=== PATIENT | female | born 1980 | race Caucasian/White ===

== ENCOUNTER → 2017-11-23 14:02 | Outpatient (CLI) | payer BC, SELFPAY ==
[2017-11-23 14:10] LABS: Microscopic, Urine URINE MICROSCOPIC (MICROSCOPIC)
[2017-11-23 14:31] LABS: Basophils # 0.1 K/mm3 (0-0.2); Basophils % 0.6 % (0.1-2.0); Eosinophils # 0.2 K/mm3 (0.0-0.4); Eosinophils % 2.1 % (0.1-12.0); Hematocrit 41.1 % (37.0-47.0); Hemoglobin 13.7 g/dL (12.2-16.2); Lymphocytes # 3.2 K/mm3 (0.7-4.5); Lymphocytes % 36.3 K/mm3 (10-50); Mean Corpuscular HGB Conc 33.4 g/dL (31.8-35.4); Mean Corpuscular Hemoglobin 30.6 pg (27.0-31.2); Mean Corpuscular Volume 91.5 fl (81-99); Mean Platelet Volume 8.7 fl (7.4-10.4); Monocytes # 0.4 K/mm3 (0.1-1.0); Neutrophils # 4.9 K/mm3 (1.8-7.8); Platelet Count 192 K/mm3 (142-424); Red Blood Count 4.49 M/mm3 (4.20-5.40); White Blood Count 8.7 K/mm3 (4.8-10.8)
[2017-11-23 14:52] LABS: Appearance,Urine CLEAR (Clear); Bilirubin,Urine Negative (Negative); Blood, Urine TRACE-L (Negative); Color,Urine YELLOW (Yellow); Glucose,Urine (UA) Negative (Negative); Ketones,Urine Negative (Negative); Leukocyte Esterase,Urine TRACE (Negative); Nitrate,Urine Negative (Negative); PH,Urine 6.5 (5.0-8.5); Protein,Urine Negative (Negative); Urobilinogen,Urine 0.2 EU/dl (0.2)
[2017-11-23 15:01] LABS: RBC,Urine Occasional #/hpf (0-3)
[2017-11-23 15:02] LABS: Bacteria,Urine 2+ /lpf
[2017-11-23 15:03] LABS: Alanine Aminotransferase 24 U/L (12-78); Albumin Level 3.4 gm/dL (3.4-5.0); Albumin/Globulin Ratio 0.9 (1.1-1.8); Alkaline Phosphatase 99 U/L (46-116); Anion Gap 12.9 mEq/L (5-15); Aspartate Amino Transferase 13 U/L (15-37); Bilirubin,Total 0.2 mg/dL (0.2-1.0); Blood Urea Nitrogen 22 mg/dL (7-18); Calcium 8.9 mg/dL (8.5-10.1); Carbon Dioxide 27 mmol/L (21.0-32.0); Chloride 105 mmol/L (98-107); Creatinine,Serum 1.01 mg/dL (0.55-1.02); Estimated Glomerular Filt Rate 62 ml/min (>60); GFR (African American) 75 ML/MIN (>60); Globulin 3.7 gm/dl (1.3-3.2); Glucose 110 mg/dL (74-106); Potassium 3.9 mmoL/L (3.5-5.1); Sodium 141 mmol/L (136-145); Total Protein,Serum 7.1 gm/dL (6.4-8.2)
== END ==
PROVIDERS: PCP Family Medicine; Visit Provider Obstetrics & Gynecology
DX: Z01.818 Encounter for other preprocedural examination (principal); N81.9 Female genital prolapse, unspecified
CPT/HCPCS: 36415; 80053; 81001; 85025; 87086

== ENCOUNTER → 2018-01-10 20:29 | Outpatient (REF) | payer BC, SELFPAY | LOC: LAB 20:29 | PROVIDERS: Visit Provider Nurse Practitioner Family | DX: J02.9 Acute pharyngitis, unspecified (principal) ==

== ENCOUNTER 2020-01-01 16:41 | Emergency (ER) | payer MEDICAID, SELFPAY ==
[2020-01-01 16:41] VITALS: BP 161/94; PULSE 114; RESP 18; TEMP 37.3; O2SAT 98; BMI 39.2
[2020-01-01 16:53] VITALS: BMI 39.2
--- NOTE | 2020-01-01 16:54 | CT_ITS ---
PROCEDURE: CT ABDOMEN PELVIS WO CON CLINICAL INDICATION: r/o stone Right flank pain COMPARISON: CT ABDPELW CT ABD PELVIS W/ CONTRAST from 08/11/2016 TECHNIQUE: Axial images obtained with sagittal and coronal reformats. All CT scans at the facility use one or more dose reduction, viz: automated exposure control, ma/kV adjustment per patient size (including targeted exams where dose is matched to indication, i.e. head), or iterative reconstruction technique. FINDINGS: LOWER THORAX: No acute finding ABDOMEN & PELVIS: Fatty liver. Prior cholecystectomy. The spleen, adrenal glands, pancreas, and kidneys have an unremarkable appearance. No renal or ureteral calculi No intestinal obstruction or free air. Prior hysterectomy. Unremarkable appendix. No pelvic mass or abnormal fluid collection. No acute bony findings. IMPRESSION: No acute abdominal or pelvic findings. Dictated by: Vega Kaufman MD 01/02/2020 06:33 Vega Kaufman MD in [place] 01/02/2020 06:33
[2020-01-01 17:01] LABS: Microscopic, Urine URINE MICROSCOPIC (MICROSCOPIC)
[2020-01-01 17:02] LABS: Appearance,Urine CLOUDY (Clear); Bilirubin,Urine Negative (Negative); Blood, Urine 3+ (Negative); Color,Urine YELLOW (Yellow); Glucose,Urine (UA) Negative (Negative); Ketones,Urine Negative (Negative); Leukocyte Esterase,Urine Negative (Negative); Nitrate,Urine Negative (Negative); Protein,Urine Negative (Negative); Specific Gravity, Urine >= 1.030 (1.005-1.030); Urobilinogen,Urine 0.2 EU/dl (0.2)
--- NOTE | 2020-01-01 17:04 | HMH.EDGENADL ---
ED Disposition Clinical Impression: History of kidney stones Hematuria Qualifiers: Hematuria type: gross Qualified Code(s): R31.0 - Gross hematuria Disposition: Home, Self-Care Condition on Discharge: Fair Instructions: DI for Hematuria Additional Instructions: You have been evaluated for hernia, likely passed a kidney stone. Please complete a bowel cleanout. Take 10 ounces of magnesium citrate. 2 hours later take 4 capfuls of MiraLAX. You should have multiple bowel movements. Stay hydrated with water and Gatorade. Return to the emergency department for any new or worsening symptoms. Follow-up with your primary care doctor. Prescriptions: Magnesium Citrate [Magnesium Citrate 10oz Bottle] 10 oz PO ONCE #1 solution Prescription Printed polyethylene glycoL 3350 [Miralax Powder] 17 gm PO ONCE #119 gm Prescription Printed Referrals: Provider,Referral, [Primary Care Provider] - Time of Disposition: 18:16 - Critical Care Critical Care Time: No Attestation: On 01/01/20, the high probability of a clinically significant, sudden or life threatening deterioration of the following system(s) required my full and direct attention, intervention and personal management. The time I documented below is in addition to time spent performing reported procedures but includes the following listed in this critical care notation. Medical Decision Making - Medical Records Medical records reviewed: Yes: I reviewed the patient's medical records. - Valentin Inquiry Pt receiving controlled substance: No Vital Signs: 01/01/20 16:41 01/01/20 17:54 01/01/20 19:02 Temperature 99.2 F 99.2 F Temperature Source Oral Oral Pulse Rate 95 H Pulse Rate [Radial] 114 H 89 Respiratory Rate 18 18 Blood Pressure 126/87 Blood Pressure [Right Arm] 161/94 H 109/60 L Blood Pressure Mean [Right Arm] 116 76 Blood Pressure Source Automatic Cuff Blood Pressure Source [Right Arm] Automatic Cuff Blood Pressure Position Sitting Blood Pressure Position [Right Arm] Sitting Sitting 02 Sat by Pulse Oximetry 98 97 Oxygen Delivery Method Room Air Room Air Room Air - Lab Data Lab Results 01/01/20 16:52: Urine Color Yellow, Urine Appearance Cloudy, Urine pH 6.0, Ur Specific Snyder >= 1.030, Urine Protein Negative, Urine Glucose (UA) Negative, Urine Ketones Negative, Urine Blood 3+, Urine Nitrate Negative, Urine Bilirubin Negative, Urine Urobilinogen 0.2, Ur Leukocyte Esterase Negative, Urine RBC 10-20, Urine WBC 5-10, Ur Squamous Epith Cells 5-10 01/01/20 17:05: WBC 9.4, RBC 4.66, Hgb 13.3, Hct 42.2, MCV 90.6, MCH 28.6, MCHC 31.6 L, RDW 13.4, Plt Count 227, MPV 8.7, Neut % (Auto) 59.2, Lymph % (Auto) 31.7, Gray % (Auto) 5.2, Eos % (Auto) 3.3, Baso % (Auto) 0.7, Neut # (Auto) 5.6, Lymph # (Auto) 3.0, Gray # (Auto) 0.5, Eos # (Auto) 0.3, Baso # (Auto) 0.1 01/01/20 17:05: Sodium 140, Potassium 3.8, Chloride 106, Carbon Dioxide 27, Anion Gap 10.8, BUN 11, Creatinine 0.70, Estimated Creat Clear 186, Estimated GFR 94, Est GFR ( Amer) 114, Glucose 114 H, Calcium 8.9, Total Bilirubin 0.2, AST 28, ALT 27, Alkaline Phosphatase 81, Total Protein 6.9, Albumin 4.0, Globulin 2.9, Albumin/Globulin Ratio 1.4 Result diagrams: 01/01/20 17:05 01/01/20 17:05 Orders (Tests/Meds): ED MEDICATIONS Discontinued Medications Generic Name Dose Route Start Last Admin Trade Name Freq PRN Reason Stop Dose Admin Sodium Chloride 1,000 mls @ 999 mls/hr 01/01/20 17:00 01/01/20 16:57 Sod Chlor 0.9% 1000ml Bag IV 01/01/20 18:00 999 mls/hr .Q1H1M STEFANO Administration Morphine Sulfate 4 mg 01/01/20 17:09 01/01/20 17:10 Morphine 4mg/Ml Syringe IV 01/01/20 17:10 4 mg ONCE ONE Administration Ondansetron HCl 4 mg 01/01/20 16:55 01/01/20 16:57 Ondansetron 4mg/2ml Vial IV 01/01/20 16:56 4 mg ONCE ONE Administration ORDERS Category Date Time Status CT abdomen pelvis wo con Stat Cat Scan 01/01/20 16:54 Taken - CT
[2020-01-01 17:14] LABS: Basophils # 0.1 K/mm3 (0-0.2); Basophils % 0.7 % (0.1-2.0); Eosinophils # 0.3 K/mm3 (0.0-0.4); Eosinophils % 3.3 % (0.1-12.0); Hematocrit 42.2 % (37.0-47.0); Hemoglobin 13.3 g/dL (12.2-16.2); Lymphocytes % 31.7 % (10-50); Mean Corpuscular HGB Conc 31.6 g/dL (31.8-35.4); Mean Corpuscular Hemoglobin 28.6 pg (27.0-31.2); Mean Corpuscular Volume 90.6 fl (81-99); Mean Platelet Volume 8.7 fl (7.4-10.4); Monocytes # 0.5 K/mm3 (0.1-1.0); Monocytes % 5.2 % (1.7-9.3); Neutrophils # 5.6 K/mm3 (1.8-7.8); Neutrophils % 59.2 % (37.0-80.0); Platelet Count 227 K/mm3 (142-424); Red Blood Count 4.66 M/mm3 (4.20-5.40); Red Cell Distribution Width 13.4 % (11.5-17.5); White Blood Count 9.4 K/mm3 (4.8-10.8)
[2020-01-01 17:19] LABS: Chloride 106 mmol/L (98-107)
[2020-01-01 17:20] LABS: Potassium 3.8 mmoL/L (3.5-5.1); Sodium 140 mmol/L (136-145)
[2020-01-01 17:22] LABS: Alanine Aminotransferase 27 U/L (12-78); Alkaline Phosphatase 81 U/L (38-126); Anion Gap 10.8 mEq/L (5-15); Aspartate Amino Transferase 28 U/L (14-36); Bilirubin,Total 0.2 mg/dl (0.2-1.3); Blood Urea Nitrogen 11 mg/dl (7-17); Carbon Dioxide 27 mmol/L (22.0-30.0); Creatinine Clearance Estimated 186 mL/min (50-200); Estimated Glomerular Filt Rate 94 ml/min (>60); GFR (African American) 114 ML/MIN (>60)
[2020-01-01 17:23] LABS: Albumin/Globulin Ratio 1.4 (1.1-1.8); Calcium 8.9 mg/dl (8.4-10.2); Globulin 2.9 g/dL (1.3-3.2); Glucose 114 mg/dl (74-100); Total Protein,Serum 6.9 g/dl (6.3-8.2)
[2020-01-01 17:54] VITALS: BP 109/60; PULSE 89; O2SAT 97
[2020-01-01 19:02] VITALS: BP 126/87; PULSE 95; RESP 18; TEMP 37.3; O2SAT 97
== END 2020-01-01 19:05 | disposition home or self-care (01) ==
PROVIDERS: Emergency Provider Emergency Medicine
DX: R31.9 Hematuria, unspecified (principal); Z87.442 Personal history of urinary calculi; Z88.2 Allergy status to sulfonamides; K21.9 Gastro-esophageal reflux disease without esophagitis; Z87.891 Personal history of nicotine dependence
CPT/HCPCS: 74176; 80053; 81001; 85025; 96365; 96375; 99283; J2405

== ENCOUNTER 2020-05-03 14:23 | Emergency (ER) | payer MEDICAID, SELFPAY ==
[2020-05-03 15:30] VITALS: BP 123/74; PULSE 95; RESP 14; TEMP 36.9; O2SAT 99; BMI 40.7
--- NOTE | 2020-05-03 16:07 | HMH.EDUTC ---
[facility] [place]ression: Migraine headache Qualifiers: Migraine type: unspecified Status migrainosus presence: without status migrainosus Intractability: not intractable Qualified Code(s): G43.909 - Migraine, unspecified, not intractable, without status migrainosus Disposition: Home, Self-Care Condition on Discharge: Good Instructions: Migraine -- Adult, DI for Migraine Additional Instructions: Drink plenty of fluids. Take the medications as directed Follow up with your regular doctor. GO TO THE ER FOR ANY WORSENING SYMPTOMS Prescriptions: SUMAtriptan succinate [Imitrex] 50 mg PO DAILYP PRN #20 tab PRN Reason: Migraine Headache Transmission Status: Received by [facility] Referrals: Angel Edwards II, MD [Primary Care Provider] - Forms: Work/School Release Time of Disposition: 16:29 Medical Decision Making - Medical Records Medical records reviewed: No: I reviewed the patient's medical records. - Valentin Inquiry Pt receiving controlled substance: No Vital Signs: 05/03/20 15:30 05/03/20 16:30 Temperature 98.4 F 98.6 F Temperature Source Oral Oral Pulse Rate 96 H Pulse Rate [Right] 95 H Respiratory Rate 14 14 Blood Pressure 122/76 Blood Pressure [Right Arm] 123/74 Blood Pressure Mean [Right Arm] 90 Blood Pressure Source [Right Arm] Automatic Cuff Blood Pressure Position [Right Arm] Sitting 02 Sat by Pulse Oximetry 99 Oxygen Delivery Method Room Air [facility] [place] - General Stated complaint: Migraine Time Seen by Provider: 05/03/20 16:07 Mode of Arrival: Ambulatory Source of Information: Patient Limitations: No Limitations Description of Symptoms (Recalled from Triage Doc. by RN): pt states she had a migraine that started yesterda. HEENT Symptoms (Recalled from RN notes): Yes (migraine and sinus pressure) Resp Symptoms (Recalled from RN notes): No Skin Symptoms (Recalled from RN notes): No MS Symptoms (Recalled from RN notes): No Functional Status (Recalled from RN notes): na - History of Present Illness Provider Complaint: She has a history of migraine headache. She states that for the past 2 days she has had a migraine that has not broke with her normal medications. She has been taking ibuprofen and excedrin. She denies that it is not the worst headache that she has ever had. - Related Data Previous Rx's Medication Instructions Recorded SUMAtriptan succinate [Imitrex] 50 mg PO DAILYP PRN #20 tab 05/03/20 Allergies Allergy/AdvReac Type Severity Reaction Status Date / Time ketorolac [From TORADOL] Allergy Unknown I-RASH Verified 05/03/20 15:34 latex [LATEX] Allergy Unknown RASH, Verified 05/03/20 15:34 ITCHING loratadine [LORATADINE] Allergy Unknown MIGRAINES Verified 05/03/20 15:34 tramadol [TRAMADOL] Allergy Unknown I-RASH Verified 05/03/20 15:34 Sulfa (Sulfonamide Allergy Verified 05/03/20 15:34 Antibiotics) - Worker's Comp Is this a Worker's Comp case?: No [facility] History - Hepatitis A Screen Drug use history?: No High risk sexual behaviors?: No History of sexually transmitted infection?: No Currently employed?: No Childcare worker?: No Do you have indoor plumbing?: Yes Do you have electricity?: Yes Attestation statement:: This patient has been screened for Hepatitis A risk factors. I have reviewed the patient's past medical history: Yes Medical History: Reports:: Gastroesophageal Reflux Disease(GERD) Denies:: Cancer, Diabetes Mellitus Type 1, Diabetes Mellitus Type 2, Internal Pacemaker, MRSA, Seizures Other Medical History: Reports: Other. Denies: Blood Transfusion Reaction Comment: ENDOMETRIOSIS. Seroma complicating a procedure. Galactorrhea (RT breast). EARLY ONSET STROKE??? Other Surgeries: No: Pacemaker Amputation: No Fractures: No Comment: Dx LSC--PCO--2001. Lasik eye surgery--2002. D&C, [facility] Bx--2002. EGD--2002. [place] teeth--2003. Cystoscopy Dr. Jacob--2007. Dx HSC, Fx D&C, Endometrial polypX, Dx LS
[2020-05-03 16:30] VITALS: BP 122/76; PULSE 96; RESP 14; TEMP 37
== END 2020-05-03 16:45 | disposition home or self-care (01) ==
PROVIDERS: Emergency Provider Nurse Practitioner Family; PCP Internal Medicine
DX: Z20.822 Contact with and (suspected) exposure to COVID-19 (principal); G43.909 Migraine, unspecified, not intractable, without status migrainosus; K21.9 Gastro-esophageal reflux disease without esophagitis; Z88.2 Allergy status to sulfonamides
CPT/HCPCS: 99202; G0463; U0003

== ENCOUNTER 2020-08-07 18:02 | Emergency (ER) | payer MEDICAID, SELFPAY ==
--- NOTE | 2020-08-07 18:10 | ECG_ITS ---
APPROVED REPORT Exam: Resting ECG HR:112 bpm ECG Measurements Heart Rate 112 AXES MS 130 P 52 QRSd 74 QRS -28 QT 372 T 61 QTc 507 Conclusion Sinus tachycardia Possible Left atrial enlargement Borderline ECG Electronically signed by : Remigio Wells, 08/08/2020 16:38:21
--- NOTE | 2020-08-07 18:10 | XR_ITS ---
PROCEDURE INFORMATION: Exam: XR Chest Exam date and time: 08/07/20 06:10 PM Age: 39 years old Clinical indication: Shortness of breath; Prior surgery; Surgery date: 3-7 days post-operative; Surgery type: Tonsil removal; Patient HX: SOA and dehydration; Additional info: SOB TECHNIQUE: Imaging protocol: XR of the chest. Views: 1 view. COMPARISON: CR XR CHEST 2V 06/11/19 04:48 PM FINDINGS: Lungs: Unremarkable. No consolidation. Pleural spaces: Unremarkable. No pleural effusion. No pneumothorax. Heart/Mediastinum: Unremarkable. No cardiomegaly. Bones/joints: Unremarkable. IMPRESSION: No acute findings.
--- NOTE | 2020-08-07 18:11 | HMH.EDGENADL ---
ED Disposition Clinical Impression: Tachycardia Disposition: Home, Self-Care Condition on Discharge: Good Referrals: Angel Edwards II, MD [Primary Care Provider] - - Critical Care Critical Care Time: No Attestation: On , the high probability of a clinically significant, sudden or life threatening deterioration of the following system(s) required my full and direct attention, intervention and personal management. The time I documented below is in addition to time spent performing reported procedures but includes the following listed in this critical care notation. Medical Decision Making - Medical Records Medical records reviewed: Yes: I reviewed the patient's medical records. - Valentin Inquiry Pt receiving controlled substance: No Vital Signs: 08/07/20 18:18 Temperature 98.1 F Temperature Source Oral Pulse Rate [Right] 120 H Respiratory Rate 18 Blood Pressure [Right Arm] 146/90 H Blood Pressure Mean [Right Arm] 108 Blood Pressure Source [Right Arm] Automatic Cuff Blood Pressure Position [Right Arm] Sitting 02 Sat by Pulse Oximetry 98 Oxygen Delivery Method Room Air - Lab Data Lab Results 08/07/20 18:30: WBC 12.4 H, RBC 4.97, Hgb 14.6, Hct 46.5, MCV 93.5, MCH 29.3, MCHC 31.4 L, RDW 13.7, Plt Count 261, MPV 8.8, Neut % (Auto) 71.0, Lymph % (Auto) 20.9, Parker % (Auto) 6.1, Eos % (Auto) 1.0, Baso % (Auto) 1.0, Neut # (Auto) 8.8 H, Lymph # (Auto) 2.6, Parker # (Auto) 0.8, Eos # (Auto) 0.1, Baso # (Auto) 0.1 08/07/20 18:30: Sodium 139, Potassium 3.6, Chloride 101, Carbon Dioxide 25, Anion Gap 16.6 H, BUN 19 H, Creatinine 0.70, Estimated Creat Clear 180, Estimated GFR 94, Est GFR ( Amer) 114, Glucose 136 H, Calcium 9.6, Troponin I < 0.01 08/07/20 18:30: D-Dimer 0.69 H Result diagrams: 08/07/20 18:30 08/07/20 18:30 Orders (Tests/Meds): ED MEDICATIONS Generic Name Dose Route Start Last Admin Trade Name Freq PRN Reason Stop Dose Admin Lactated Ringer's 2,000 mls @ 999 mls/hr 08/07/20 18:15 08/07/20 18:39 Lactated Ringer's 1000 Ml Bag IV 08/07/20 20:15 999 mls/hr .Q2H1M STEFANO Administration Discontinued Medications Generic Name Dose Route Start Last Admin Trade Name Freq PRN Reason Stop Dose Admin Morphine Sulfate 4 mg 08/07/20 18:45 08/07/20 18:51 Morphine 4mg/Ml Syringe IV 08/07/20 18:46 4 mg ONCE ONE Administration Ondansetron HCl 4 mg 08/07/20 18:18 08/07/20 18:39 Ondansetron 4mg/2ml Vial IV 08/07/20 18:19 4 mg ONCE ONE Administration ORDERS Category Date Time Status Troponin I Q3H Lab 08/07/20 21:30 Ordered Troponin I Q3H Lab 08/08/20 00:30 Ordered ECG Request by /Alfonso Stat Y 08/07/20 18:10 Ordered Medical Decision Narrative: In summary is a 33-year-old female presenting for tachycardia and shortness of breath after tonsillectomy on Sunday. Patient has no evidence of bleeding, no concern for infection, patient vitals concerning for tachycardia 130s, blood pressure stable. Not hypoxemic. Given the patient recently had an operation could be dehydrated secondary to low oral intake or have other pathologies including pulmonary embolism, electrolyte abnormality therefore labs were obtained including D-dimer, troponin, chest x-ray, EKG, patient is given 2 L bolus of lactated Ringer's. Patient on IV morphine for pain control, IV Zofran for nausea control. Patient's blood work is nonactionable, troponin is negative, D-dimer is elevated 0.6 however patient does meet criteria for years algorithm and therefore does not require any further imaging at this time. This is possibly elevated in setting of recent surgery. Patient's repeat heart rate was significant improvement patient was amenable to discharge, patient will follow up with her surgery team in the next several days, patient was sent home General Adult HPI - General Stated complaint: feels dehydrated Time Seen by Provider: 08/07/20 18:11 - History of Present Illness HPI narrative: 39-
[2020-08-07 18:18] VITALS: BP 146/90; PULSE 120; RESP 18; TEMP 36.7; O2SAT 98; BMI 37.9
[2020-08-07 18:52] LABS: Basophils # 0.1 K/mm3 (0-0.2); Eosinophils # 0.1 K/mm3 (0.0-0.4); Hematocrit 46.5 % (37.0-47.0); Hemoglobin 14.6 g/dL (12.2-16.2); Lymphocytes # 2.6 K/mm3 (0.7-4.5); Lymphocytes % 20.9 % (10-50); Mean Corpuscular HGB Conc 31.4 g/dL (31.8-35.4); Mean Corpuscular Hemoglobin 29.3 pg (27.0-31.2); Mean Corpuscular Volume 93.5 fl (81-99); Mean Platelet Volume 8.8 fl (7.4-10.4); Monocytes # 0.8 K/mm3 (0.1-1.0); Monocytes % 6.1 % (1.7-9.3); Neutrophils # 8.8 K/mm3 (1.8-7.8); Platelet Count 261 K/mm3 (142-424); Red Blood Count 4.97 M/mm3 (4.20-5.40); Red Cell Distribution Width 13.7 % (11.5-17.5); White Blood Count 12.4 K/mm3 (4.8-10.8)
[2020-08-07 18:54] LABS: Chloride 101 mmol/L (98-107); Potassium 3.6 mmoL/L (3.5-5.1); Sodium 139 mmol/L (136-145)
[2020-08-07 18:57] LABS: Anion Gap 16.6 mEq/L (5-15); Blood Urea Nitrogen 19 mg/dl (7-17); Calcium 9.6 mg/dl (8.4-10.2); Carbon Dioxide 25 mmol/L (22.0-30.0); Creatinine Clearance Estimated 180 mL/min (50-200); Estimated Glomerular Filt Rate 94 ml/min (>60); GFR (African American) 114 ML/MIN (>60); Glucose 136 mg/dl (74-100)
[2020-08-07 19:02] LABS: D-Dimer 0.69 ug/mL (0.0-0.5)
[2020-08-07 19:11] LABS: Troponin I < 0.01 ng/ml (0.00-0.034)
[2020-08-07 20:48] VITALS: BP 134/78; PULSE 90; RESP 16; TEMP 36.7; O2SAT 98
== END 2020-08-07 20:50 | disposition home or self-care (01) ==
PROVIDERS: Emergency Provider Emergency Medicine; PCP Internal Medicine
DX: R00.0 Tachycardia, unspecified (principal); K21.9 Gastro-esophageal reflux disease without esophagitis; Z88.2 Allergy status to sulfonamides; Z88.8 Allergy status to other drugs, medicaments and biological substances; Z91.040 Latex allergy status
CPT/HCPCS: 71045; 80048; 84484; 85025; 85378; 93005; 96365; 99282; J2405

== ENCOUNTER 2020-08-09 11:53 | Emergency (ER) | payer MEDICAID, SELFPAY ==
[2020-08-09 11:54] VITALS: BP 154/115; PULSE 115; RESP 16; TEMP 36.8; O2SAT 100; BMI 37.9
--- NOTE | 2020-08-09 12:01 | PC.NURSE ---
calling pt's ENT dr vasquez at this time.
--- NOTE | 2020-08-09 12:03 | HMH.EDGENADL ---
ED Disposition Clinical Impression: Post tonsillectomy secondary hemorrhage Disposition: Xfer Other Condition on Discharge: Fair Additional Instructions: You have been evaluated for post tonsillectomy bleeding. Please go directly to Dr. Chao's [facility] [place]. Referrals: Angel Edwards II, MD [Primary Care Provider] - Time of Disposition: 12:12 - Critical Care Critical Care Time: No Attestation: On 08/09/20, the high probability of a clinically significant, sudden or life threatening deterioration of the following system(s) required my full and direct attention, intervention and personal management. The time I documented below is in addition to time spent performing reported procedures but includes the following listed in this critical care notation. Medical Decision Making - Medical Records Medical records reviewed: Yes: I reviewed the patient's medical records. - Valentin Inquiry Pt receiving controlled substance: No Medical Decision Narrative: In summary this is a 39-year-old female postop day 7 from tonsillectomy. Presenting to the emergency department with bleeding. She is clinically stable on arrival. Protecting her airway. Spitting up minimal amounts of blood. No large hematoma in the posterior oropharynx. No significant signs of hemorrhage. Case discussed with her ENT physician Dr. Chao. He will graciously see patient in office immediately. Patient given Zofran ODT for nausea. Instructed to go directly to [place] [facility]. Patient expressed understanding. Her mother will drive her. General Adult HPI - General Stated complaint: mouth bleeding Time Seen by Provider: 08/09/20 12:03 - History of Present Illness HPI narrative: 39-year-old female presenting to the emergency department with bleeding. She is postop day 7 from an elective tonsillectomy. This morning when she woke up she felt very nauseous. Was spitting up blood. Says it was bright red blood as well as clots. She continues to have pain in the back of her throat. This has been constant for the last 7 days. Bleeding is new as of today. Is taking Aleve for pain. No blood thinners. - Related Data Home Medications Medication Instructions Recorded Confirmed Pantoprazole Sodium [Protonix 40mg 40 mg PO DAILY 08/07/20 08/07/20 tablet] buPROPion HCL [Wellbutrin SR 150mg 150 mg PO BID 08/07/20 08/07/20 Tablet] Previous Rx's Medication Instructions Recorded SUMAtriptan succinate [Imitrex] 50 mg PO DAILYP PRN #20 tab 05/03/20 Allergies Allergy/AdvReac Type Severity Reaction Status Date / Time ketorolac [From TORADOL] Allergy Unknown I-RASH Verified 08/09/20 12:05 latex [LATEX] Allergy Unknown RASH, Verified 08/09/20 12:05 ITCHING loratadine [LORATADINE] Allergy Unknown MIGRAINES Verified 08/09/20 12:05 tramadol [TRAMADOL] Allergy Unknown I-RASH Verified 08/09/20 12:05 Sulfa (Sulfonamide Allergy Verified 08/09/20 12:05 Antibiotics) [facility] History - Hepatitis A Screen Attestation statement:: This patient has been screened for Hepatitis A risk factors. Medical History: Reports:: Gastroesophageal Reflux Disease(GERD) Denies:: Cancer, Diabetes Mellitus Type 1, Diabetes Mellitus Type 2, Internal Pacemaker, MRSA, Seizures Other Medical History: Reports: Other. Denies: Blood Transfusion Reaction Comment: ENDOMETRIOSIS. Seroma complicating a procedure. Galactorrhea (RT breast). EARLY ONSET STROKE??? Other Surgeries: No: Pacemaker Amputation: No Fractures: No Comment: Dx LSC--PCO--2001. Lasik eye surgery--2002. D&C, [facility] Bx--2002. EGD--2002. [place] teeth--2003. Cystoscopy Dr. Jacob--2007. Dx HSC, Fx D&C, Endometrial polypX, Dx LSC--2007. Lap Cholecystectomy--2009. [facility], RT SO--2009. Dx LSC, Extensive adhesiolysis, Exp. Laparotomy, Extensive adhesiolysis, LT SO--2011. Cystoscopy with stent placement--2011. 11/29/2017-A&P Colporrhaphies - Social Histor
--- NOTE | 2020-08-09 12:07 | PC.NURSE ---
Dr Hurt speaking with Dr vasquez at this time.
[2020-08-09 12:19] VITALS: BP 146/100; PULSE 80; RESP 16; TEMP 36.8; O2SAT 98
== END 2020-08-09 12:20 | disposition other institution (70) ==
PROVIDERS: Emergency Provider Emergency Medicine; PCP Internal Medicine
DX: J95.830 Postprocedural hemorrhage of a respiratory system organ or structure following a respiratory system procedure (principal); R11.0 Nausea
CPT/HCPCS: 99281

== ENCOUNTER 2020-11-01 13:54 | Emergency (ER) | payer MEDICAID, SELFPAY ==
[2020-11-01 16:07] VITALS: BP 135/95; PULSE 98; RESP 20; TEMP 37.2; O2SAT 98; BMI 41.1
--- NOTE | 2020-11-01 16:14 | HMH.EDUTC ---
[facility] [place] Clinical Impression: Exposure to COVID-19 virus Disposition: Home, Self-Care Condition on Discharge: Good Instructions: DI for COVID-19 (Suspected or Confirmed ), Preventing the Spread of Coronavirus Discharge Instructions Additional Instructions: Drink plenty of fluids. Take tylenol for pain or fever. Return if you begin to have difficulty breathing. Follow up with your regular doctor. GO TO THE ER FOR ANY WORSENING SYMPTOMS Referrals: Angel Edwards II, MD [Primary Care Provider] - Time of Disposition: 16:18 Medical Decision Making - Medical Records Medical records reviewed: No: I reviewed the patient's medical records. - Valentin Inquiry Pt receiving controlled substance: No Vital Signs: 11/01/20 16:07 Temperature 98.9 F Temperature Source Oral Pulse Rate [Left] 98 H Respiratory Rate 20 Blood Pressure [Right Arm] 135/95 H Blood Pressure Mean [Right Arm] 108 02 Sat by Pulse Oximetry 98 [facility] [place] - General Stated complaint: exposure Time Seen by Provider: 11/01/20 16:14 Mode of Arrival: Ambulatory Source of Information: Patient Limitations: No Limitations Description of Symptoms (Recalled from Triage Doc. by RN): pt was exposed to covid positive brother around last fri. HEENT Symptoms (Recalled from RN notes): No Resp Symptoms (Recalled from RN notes): No Skin Symptoms (Recalled from RN notes): No MS Symptoms (Recalled from RN notes): No Functional Status (Recalled from RN notes): na - History of Present Illness Provider Complaint: She has been exposed to covid by being around her brother's family and then they all came up sick with covid. She denies any symptoms so far. Her exposure happened around 4 to 5 days ago. - Related Data Home Medications Medication Instructions Recorded Confirmed Pantoprazole Sodium [Protonix 40mg 40 mg PO DAILY 08/07/20 08/07/20 tablet] buPROPion HCL [Wellbutrin SR 150mg 150 mg PO BID 08/07/20 08/07/20 Tablet] Previous Rx's Medication Instructions Recorded SUMAtriptan succinate [Imitrex] 50 mg PO DAILYP PRN #20 tab 05/03/20 Allergies Allergy/AdvReac Type Severity Reaction Status Date / Time ketorolac [From TORADOL] Allergy Unknown I-RASH Verified 08/09/20 12:05 latex [LATEX] Allergy Unknown RASH, Verified 08/09/20 12:05 ITCHING loratadine [LORATADINE] Allergy Unknown MIGRAINES Verified 08/09/20 12:05 tramadol [TRAMADOL] Allergy Unknown I-RASH Verified 08/09/20 12:05 Sulfa (Sulfonamide Allergy Verified 08/09/20 12:05 Antibiotics) - Worker's Comp Is this a Worker's Comp case?: No [facility] History - Hepatitis A Screen Drug use history?: No High risk sexual behaviors?: No History of sexually transmitted infection?: No Currently employed?: No Childcare worker?: No Do you have indoor plumbing?: Yes Do you have electricity?: Yes Attestation statement:: This patient has been screened for Hepatitis A risk factors. I have reviewed the patient's past medical history: Yes Medical History: Reports:: Gastroesophageal Reflux Disease(GERD) Denies:: Cancer, Diabetes Mellitus Type 1, Diabetes Mellitus Type 2, Internal Pacemaker, MRSA, Seizures Other Medical History: Reports: Other. Denies: Blood Transfusion Reaction Comment: ENDOMETRIOSIS. Seroma complicating a procedure. Galactorrhea (RT breast). EARLY ONSET STROKE??? Other Surgeries: No: Pacemaker Amputation: No Fractures: No Comment: Dx LSC--PCO--2001. Lasik eye surgery--2002. D&C, [facility] Bx--2002. EGD--2002. [place] teeth--2003. Cystoscopy Dr. Jacob--2007. Dx HSC, Fx D&C, Endometrial polypX, Dx LSC--2007. Lap Cholecystectomy--2009. [facility], RT SO--2009. Dx LSC, Extensive adhesiolysis, Exp. Laparotomy, Extensive adhesiolysis, LT SO--2011. Cystoscopy with stent placement--2011. 11/29/2017-A&P Colporrhaphies - Social History Smoking Status: Never smoker # Packs/Day (cigarettes): 1 Alcohol Intake: never Alcohol Intake Frequency:: other
[2020-11-01 16:34] VITALS: BP 130/91; PULSE 95; RESP 20; TEMP 36.8
== END 2020-11-01 16:34 | disposition home or self-care (01) ==
PROVIDERS: Emergency Provider Nurse Practitioner Family; PCP Internal Medicine
DX: Z20.822 Contact with and (suspected) exposure to COVID-19 (principal)
CPT/HCPCS: 99202; G0463; U0003

== ENCOUNTER 2021-01-11 13:08 | Emergency (ER) | payer MEDICAID, SELFPAY ==
[2021-01-11 15:03] VITALS: BP 149/95; PULSE 94; RESP 18; TEMP 37; O2SAT 96; BMI 39.4
[2021-01-11 15:21] LABS: UTC Strep Screen (Rapid) Negative (Negative)
[2021-01-11 16:14] LABS: Apearance,Urine Cloudy (Clear); Color,Urine Dark Yellow (Yellow); Protein,Urine 1+ (Negative)
[2021-01-11 16:15] LABS: Bilirubin,Urine Negative (Negative); Blood, Urine 4+ (Negative); Glucose,Urine (UA) Negative (Negative); Ketones,Urine Negative (Negative); UTC Leukocyte Esterase,Urine Negative (Negative); UTC Nitrate,Urine Negative (Negative); Urobilinogen,Urine 0.2 EU/dl (0.2)
--- NOTE | 2021-01-11 16:20 | HMH.EDUTC ---
[facility] Disposition Clinical Impression: Right flank pain Nausea and vomiting Qualifiers: Vomiting type: unspecified Vomiting Intractability: non-intractable Qualified Code(s): R11.2 - Nausea with vomiting, unspecified Hematuria Qualifiers: Hematuria type: unspecified type Qualified Code(s): R31.9 - Hematuria, unspecified Disposition: Still a Patient Condition on Discharge: Fair Referrals: Angel Edwards II, MD [Primary Care Provider] - Time of Disposition: 16:25 Medical Decision Making - Medical Records Medical records reviewed: No: I reviewed the patient's medical records. - Valentin Inquiry Pt receiving controlled substance: No Vital Signs: 01/11/21 15:03 Temperature 98.6 F Temperature Source Oral Pulse Rate [Left] 94 H Respiratory Rate 18 Blood Pressure [Right Arm] 149/95 H Blood Pressure Mean [Right Arm] 113 02 Sat by Pulse Oximetry 96 - Lab Data Lab results reviewed: Yes: I reviewed the patient's lab results. Lab Results 01/11/21 15:08: Strep Scn Rapid [facility] Negative 01/11/21 16:11: Urine Color Dark yellow, Urine Appearance Cloudy, Urine pH 7.0, Ur Specific [place] 1.020, Urine Protein 1+, Urine Glucose (UA) Negative, Urine Ketones Negative, Urine Blood 4+, Urine Nitrate Negative, Urine Bilirubin Negative, Urine Urobilinogen 0.2, Ur Leukocyte Esterase Negative Orders (Tests/Meds): ORDERS Category Date Time Status Strep Screen Confirmation Stat Micro 01/11/21 15:08 Received Medical Decision Narrative: She was transferrd to the er due to her flank pain, vomiting, hematuria and history of kidney stone. [facility] HPI - General Stated complaint: Vomiting since 1016, headache Time Seen by Provider: 01/11/21 16:00 Mode of Arrival: Ambulatory Source of Information: Patient Limitations: No Limitations Description of Symptoms (Recalled from Triage Doc. by RN): pt c/o n/v/d and a BRYAN since yesterday am. HEENT Symptoms (Recalled from RN notes): Yes (BRYAN) Resp Symptoms (Recalled from RN notes): No Skin Symptoms (Recalled from RN notes): No MS Symptoms (Recalled from RN notes): No Functional Status (Recalled from RN notes): na - History of Present Illness Provider Complaint: She states that since yesterday she has had right flank pain and n/v. She rates her pain as a 7/10 now. The last time she vomited was about 3 hours ago. She denies any diarrhea. She has a history of kidney stones. She is worried that she has a kidney stone now. - Related Data Home Medications Medication Instructions Recorded Confirmed Pantoprazole Sodium [Protonix 40mg 40 mg PO DAILY 08/07/20 08/07/20 tablet] buPROPion HCL [Wellbutrin SR 150mg 150 mg PO BID 08/07/20 08/07/20 Tablet] Previous Rx's Medication Instructions Recorded SUMAtriptan succinate [Imitrex] 50 mg PO DAILYP PRN #20 tab 05/03/20 Allergies Allergy/AdvReac Type Severity Reaction Status Date / Time ketorolac [From TORADOL] Allergy Unknown I-RASH Verified 08/09/20 12:05 latex [LATEX] Allergy Unknown RASH, Verified 08/09/20 12:05 ITCHING loratadine [LORATADINE] Allergy Unknown MIGRAINES Verified 08/09/20 12:05 tramadol [TRAMADOL] Allergy Unknown I-RASH Verified 08/09/20 12:05 Sulfa (Sulfonamide Allergy Verified 08/09/20 12:05 Antibiotics) - Worker's Comp Is this a Worker's Comp case?: No [facility] History - Hepatitis A Screen Drug use history?: No High risk sexual behaviors?: No History of sexually transmitted infection?: No Currently employed?: No Childcare worker?: No Do you have indoor plumbing?: Yes Do you have electricity?: Yes Attestation statement:: This patient has been screened for Hepatitis A risk factors. I have reviewed the patient's past medical history: Yes Medical History: Reports:: Gastroesophageal Reflux Disease(GERD) Denies:: Cancer, Diabetes Mellitus Type 1, Diabetes Mellitus Type 2, Internal Pacemaker, MRSA, Seizures Other Medical History: Reports: Other. Denies: Blood T
--- NOTE | 2021-01-11 16:26 | CT_ITS ---
PROCEDURE INFORMATION: Exam: CT Abdomen And Pelvis Without Contrast Exam date and time: 01/11/2021 4:26 PM Age: 40 years old Clinical indication: Abdominal pain; Patient HX: Right flank pain, HX stones; Additional info: Abd pain TECHNIQUE: Imaging protocol: Computed tomography of the abdomen and pelvis without contrast. Radiation optimization: All CT scans at this facility use at least one of these dose optimization techniques: automated exposure control; mA and/or kV adjustment per patient size (includes targeted exams where dose is matched to clinical indication); or iterative reconstruction. COMPARISON: CT ABDOMEN PELVIS WO CON 01/01/2020 5:35 PM FINDINGS: Liver: Hepatic steatosis. Gallbladder and bile ducts: Unremarkable. No ductal dilation. Pancreas: Normal. No ductal dilation. Spleen: Normal. No splenomegaly. Adrenal glands: Normal. No mass. Kidneys and ureters: No calculus or hydronephrosis. Stomach and bowel: No acute findings. No obstruction. No mucosal thickening. Appendix: No evidence of appendicitis. Intraperitoneal space: Unremarkable. No free air. No significant fluid collection. Vasculature: No abdominal aortic aneurysm. Lymph nodes: No significant adenopathy. Urinary bladder: Unremarkable as visualized. Reproductive: Unremarkable as visualized. Bones/joints: No acute findings. Soft tissues: Unremarkable. IMPRESSION: No acute findings.
[2021-01-11 16:36] LABS: Microscopic, Urine URINE MICROSCOPIC (MICROSCOPIC)
[2021-01-11 16:39] VITALS: BP 135/89; PULSE 87; RESP 16; TEMP 36.9; O2SAT 96; BMI 39.4
[2021-01-11 16:48] LABS: Appearance,Urine CLOUDY (Clear); Bilirubin,Urine Negative (Negative); Blood, Urine 3+ (Negative); Color,Urine YELLOW (Yellow); Glucose,Urine (UA) Negative (Negative); Ketones,Urine Negative (Negative); Leukocyte Esterase,Urine Negative (Negative); Nitrate,Urine Negative (Negative); Protein,Urine Negative (Negative); Urobilinogen,Urine 0.2 EU/dl (0.2)
--- NOTE | 2021-01-11 16:50 | HMH.EDGENADL ---
ED Disposition Clinical Impression: Right flank pain Hematuria Qualifiers: Hematuria type: unspecified type Qualified Code(s): R31.9 - Hematuria, unspecified Nausea and vomiting Qualifiers: Vomiting type: unspecified Vomiting Intractability: non-intractable Qualified Code(s): R11.2 - Nausea with vomiting, unspecified Disposition: Home, Self-Care Condition on Discharge: Good Instructions: DI for Viral Gastroenteritis -- Adult, DI for Hematuria, DI for Flank Pain Additional Instructions: Zofran as needed for nausea and vomiting. Imodium as needed for diarrhea. Tylenol or ibuprofen for pain. Follow-up with Dr. Jacob for blood in your urine, call for appointment. Prescriptions: Loperamide HCl [Loperamide] 2 mg PO TIDP PRN #10 tab PRN Reason: Diarrhea Transmission Status: Received by [facility] Ondansetron [Zofran 4mg ODT] 4 mg PO TIDP PRN #10 tab PRN Reason: Nausea And Vomiting Transmission Status: Received by [facility] Referrals: Angel Edwards II, MD [Primary Care Provider] - Forms: Work/School Release - Critical Care Critical Care Time: No Attestation: On 01/11/21, the high probability of a clinically significant, sudden or life threatening deterioration of the following system(s) required my full and direct attention, intervention and personal management. The time I documented below is in addition to time spent performing reported procedures but includes the following listed in this critical care notation. Medical Decision Making - Valentin Inquiry Pt receiving controlled substance: Yes Valentin was queried for this patient: Yes Risks and benefits of using a controlled substance: were not discussed with pt by me Vital Signs: 01/11/21 15:03 01/11/21 16:39 01/11/21 17:11 Temperature 98.6 F 98.4 F Temperature Source Oral Oral Pulse Rate Pulse Rate [Left] 94 H 87 74 Respiratory Rate 18 16 16 Blood Pressure Blood Pressure [Right Arm] 149/95 H 135/89 127/85 Blood Pressure Mean [Right Arm] 113 104 99 Blood Pressure Source [Right Arm] Automatic Cuff Blood Pressure Position Blood Pressure Position [Right Arm] Sitting Sitting 02 Sat by Pulse Oximetry 96 96 96 Oxygen Delivery Method Room Air Room Air 01/11/21 18:27 Temperature 98 F Temperature Source Oral Pulse Rate 78 Pulse Rate [Left] Respiratory Rate 16 Blood Pressure 137/74 Blood Pressure [Right Arm] Blood Pressure Mean [Right Arm] Blood Pressure Source [Right Arm] Blood Pressure Position Sitting Blood Pressure Position [Right Arm] 02 Sat by Pulse Oximetry Oxygen Delivery Method Room Air - Lab Data Lab Results 01/11/21 15:08: Strep Scn Rapid Clinic Negative 01/11/21 16:07: Urine Color Yellow, Urine Appearance Cloudy, Urine pH 7.0, Ur Specific [place] 1.020, Urine Protein Negative, Urine Glucose (UA) Negative, Urine Ketones Negative, Urine Blood 3+, Urine Nitrate Negative, Urine Bilirubin Negative, Urine Urobilinogen 0.2, Ur Leukocyte Esterase Negative, Urine RBC Tntc, Urine WBC 3-5, Ur Squamous Epith Cells Occasional, Urine Bacteria 3+ 01/11/21 16:07: Urine HCG, Qual Negative 01/11/21 16:11: Urine Color Dark yellow, Urine Appearance Cloudy, Urine pH 7.0, Ur Specific [place] 1.020, Urine Protein 1+, Urine Glucose (UA) Negative, Urine Ketones Negative, Urine Blood 4+, Urine Nitrate Negative, Urine Bilirubin Negative, Urine Urobilinogen 0.2, Ur Leukocyte Esterase Negative 01/11/21 16:40: WBC 9.4, RBC 4.92, Hgb 13.9, Hct 44.9, MCV 91.2, MCH 28.2, MCHC 31.0 L, RDW 14.9, Plt Count 257, MPV 8.6, Neut % (Auto) 57.2, Lymph % (Auto) 33.3, Andrews % (Auto) 6.7, Eos % (Auto) 2.1, Baso % (Auto) 0.7, Neut # (Auto) 5.4, Lymph # (Auto) 3.1, Andrews # (Auto) 0.6, Eos # (Auto) 0.2, Baso # (Auto) 0.1 01/11/21 16:40: Sodium 141, Potassium 4.3, Chloride 106, Carbon Dioxide 25, Anion Gap 14.3, BUN 13, Creatinine 0.50 L, Estimated Creat Clear 251, Estimated GFR 138, Est GFR ( Amer) 167, Glucose 102 H, Calcium 9.2, Total Biliru
[2021-01-11 16:52] LABS: Chloride 106 mmol/L (98-107)
[2021-01-11 16:53] LABS: Potassium 4.3 mmoL/L (3.5-5.1); Sodium 141 mmol/L (136-145)
[2021-01-11 16:54] LABS: Urine Pregnancy, HCG Qual. Negative (Negative)
[2021-01-11 16:55] LABS: Alanine Aminotransferase 22 U/L (12-78); Alkaline Phosphatase 89 U/L (38-126); Aspartate Amino Transferase 35 U/L (14-36); Blood Urea Nitrogen 13 mg/dl (7-17); Creatinine Clearance Estimated 251 mL/min (50-200); Estimated Glomerular Filt Rate 138 ml/min (>60); GFR (African American) 167 ML/MIN (>60)
[2021-01-11 16:56] LABS: Albumin Level 3.9 g/dl (3.5-5.0); Albumin/Globulin Ratio 1.1 (1.1-1.8); Anion Gap 14.3 mEq/L (5-15); Calcium 9.2 mg/dl (8.4-10.2); Carbon Dioxide 25 mmol/L (22.0-30.0); Globulin 3.4 g/dL (1.3-3.2); Glucose 102 mg/dl (74-100); Total Protein,Serum 7.3 g/dl (6.3-8.2)
[2021-01-11 17:00] LABS: Bilirubin,Total 0.1 mg/dl (0.2-1.3)
[2021-01-11 17:03] LABS: Basophils # 0.1 K/mm3 (0-0.2); Basophils % 0.7 % (0.1-2.0); Eosinophils # 0.2 K/mm3 (0.0-0.4); Eosinophils % 2.1 % (0.1-12.0); Hematocrit 44.9 % (37.0-47.0); Hemoglobin 13.9 g/dL (12.2-16.2); Lymphocytes # 3.1 K/mm3 (0.7-4.5); Lymphocytes % 33.3 % (10-50); Mean Corpuscular Hemoglobin 28.2 pg (27.0-31.2); Mean Corpuscular Volume 91.2 fl (81-99); Mean Platelet Volume 8.6 fl (7.4-10.4); Monocytes # 0.6 K/mm3 (0.1-1.0); Monocytes % 6.7 % (1.7-9.3); Neutrophils # 5.4 K/mm3 (1.8-7.8); Neutrophils % 57.2 % (37.0-80.0); Platelet Count 257 K/mm3 (142-424); Red Blood Count 4.92 M/mm3 (4.20-5.40); Red Cell Distribution Width 14.9 % (11.5-17.5); White Blood Count 9.4 K/mm3 (4.8-10.8)
[2021-01-11 17:11] VITALS: BP 127/85; PULSE 74; RESP 16; O2SAT 96
[2021-01-11 17:14] LABS: Bacteria,Urine 3+ /lpf; RBC,Urine TNTC #/hpf (0-3); Squamous Epithelial Cell,Urine Occasional #/hpf (0-5)
[2021-01-11 18:27] VITALS: BP 137/74; PULSE 78; RESP 16; TEMP 36.6; O2SAT 98
== END 2021-01-11 18:29 | disposition home or self-care (01) ==
LOC: UTC 16:25 → ER 16:25
PROVIDERS: Emergency Medicine; Emergency Provider Nurse Practitioner Family; PCP Internal Medicine
DX: R11.2 Nausea with vomiting, unspecified (principal); R31.9 Hematuria, unspecified; Z87.442 Personal history of urinary calculi; K21.9 Gastro-esophageal reflux disease without esophagitis
CPT/HCPCS: 74176; 80053; 81001; 81003; 81025; 85025; 87086; 87880; 96365; 96375; 99283; J2405

== ENCOUNTER 2021-05-16 16:06 | Emergency (ER) | payer OTHER, MEDICAID, SELFPAY ==
--- NOTE | 2021-05-16 16:59 | XR_ITS ---
PROCEDURE INFORMATION: Exam: XR Chest Exam date and time: 05/16/2021 4:59 PM Age: 40 years old Clinical indication: Shortness of breath; Additional info: SOB TECHNIQUE: Imaging protocol: XR of the chest. Views: 2 views. COMPARISON: CR XR CHEST PORTABLE 08/07/2020 6:21 PM FINDINGS: Lungs: Unremarkable. No consolidation. Pleural spaces: Unremarkable. No pleural effusion. No pneumothorax. Heart/Mediastinum: Unremarkable. No cardiomegaly. Bones/joints: Unremarkable. IMPRESSION: No acute findings.
--- NOTE | 2021-05-16 17:06 | HMH.EDUTC ---
[facility] [place] Disposition Clinical Impression: Acute bronchitis Qualifiers: Bronchitis organism: unspecified organism Qualified Code(s): J20.9 - Acute bronchitis, unspecified Disposition: Home, Self-Care Condition on Discharge: Good Instructions: Acute Bronchitis, DI for Acute Bronchitis Additional Instructions: Drink plenty of fluids. Take tylenol or ibuprofen for pain or fever. Take the medications as directed. Follow up with your regular doctor. GO TO THE ER FOR ANY WORSENING SYMPTOMS Quarantine until you know the results of your covid-19 test. Notify your school or workplace of your results and follow their instructions regarding return to work/school. The cough medication (promethazine dm) will make you drowsy, so don't drive or operate heavy machinery after taking it. Prescriptions: Albuterol Sulfate [Albuterol Sulfate Hfa] 2 puffs IH Q6HP PRN 30 Days #1 each PRN Reason: Shortness Of Breath Transmission Status: Received by [facility] Promethazine/Dextromethorphan [Promethazine-Dm Syrup] 5 ml PO Q6HP PRN #240 ml PRN Reason: Cough Transmission Status: Received by [facility] Amoxicillin/Potassium Clav [Augmentin 500mg tab] 500 mg PO TID #30 tab Transmission Status: Received by [facility] methylPREDNISolone [Medrol] 4 mg PO DIRECTED 6 Days #21 packet Transmission Status: Received by [facility] Referrals: Angel Edwards II, MD [Primary Care Provider] - Forms: Work/School Release Time of Disposition: 18:07 Medical Decision Making - Medical Records Medical records reviewed: No: I reviewed the patient's medical records. - Valentin Inquiry Pt receiving controlled substance: No Vital Signs: 05/16/21 17:07 05/16/21 18:12 Temperature 98.4 F 98.4 F Temperature Source Oral Oral Pulse Rate 97 H Pulse Rate [Right Brachial] 98 H Respiratory Rate 16 16 Blood Pressure 128/85 Blood Pressure [Right Arm] 128/85 Blood Pressure Mean [Right Arm] 99 Blood Pressure Source Automatic Cuff Blood Pressure Source [Right Arm] Automatic Cuff Blood Pressure Position Sitting Blood Pressure Position [Right Arm] Sitting 02 Sat by Pulse Oximetry 96 Oxygen Delivery Method Room Air Room Air - Lab Data Lab results reviewed: Yes: I reviewed the patient's lab results. Lab Results 02/21/22 18:01: Chlamy pneumoniae PCR Not detected, Adenovirus (PCR) Not detected, B. pertussis DNA (PCR) Not detected, Coronavirus OC43 (PCR) Not detected, Coronavirus HKU1 (PCR) Not detected, Coronavirus 229E (PCR) Not detected, SARS-CoV-2 (PCR) Not detected, Coronavirus NL63 (PCR) Not detected, Human Metapneumovir PCR Detected A, Influenza A (H1) PCR Not detected, Influ A (H1N1/09) PCR Not detected, Influenza A (H3) PCR Not detected, Influenza Type A (PCR) Not detected, Influenza Type B (PCR) Not detected, M. pneumoniae (PCR) Not detected, Parainfluenza 1 (PCR) Not detected, Parainfluenza 2 (PCR) Not detected, Parainfluenza 3 (PCR) Not detected, Parainfluenza 4 (PCR) Not detected, RSV (PCR) Not detected, Entero/Rhino (PCR) Detected A - Radiology Data #1 Image(s): Chest Image Reviewed: Yes I reviewed the patient's radiology image, Yes I have reviewed radiologist's interpretation Preliminary Findings: Normal/NAD, No Infiltrates Seen PROCEDURE INFORMATION: Exam: XR Chest Exam date and time: 05/16/2021 4:59 PM Age: 40 years old Clinical indication: Shortness of breath; Additional info: SOB TECHNIQUE: Imaging protocol: XR of the chest. Views: 2 views. COMPARISON: CR XR CHEST PORTABLE 08/07/2020 6:21 PM FINDINGS: Lungs: Unremarkable. No consolidation. Pleural spaces: Unremarkable. No pleural effusion. No pneumothorax. Heart/Mediastinum: Unremarkable. No cardiomegaly. Bones/joints: Unremarkable. IMPRESSION: No acute findings. [facility] [place] HPI - General Stated complaint: exposed cough Time See
[2021-05-16 17:07] VITALS: BP 128/85; PULSE 98; RESP 16; TEMP 36.9; O2SAT 96; BMI 40.3
[2021-05-16 18:12] VITALS: BP 128/85; PULSE 97; RESP 16; TEMP 36.9; O2SAT 100
[2021-05-16 18:25] LABS: Adenovirus,PCR Not Detected (NotDetected); Bordetella Pertussis Not Detected (NotDetected); Chlamydophila Pneumoniae, PCR Not Detected (NotDetected); Coronavirus 19, PCR Not Detected (NotDetected); Coronavirus 229E Not Detected (NotDetected); Coronavirus NL63 Not Detected (NotDetected); Coronavirus OC43 Not Detected (NotDetected); Coronovirus HKU1,PCR Not Detected (NotDetected); Influenza A, PCR Not Detected (NotDetected); Influenza AH1, 2009 Not Detected (NotDetected); Influenza AH1, PCR Not Detected (NotDetected); Influenza AH3,PCR Not Detected (NotDetected); Influenza B, PCR Not Detected (NotDetected); Mycoplasma Pneumoniae, PCR Not Detected (NotDetected); Parainfluenza 1, PCR Not Detected (NotDetected); Parainfluenza 2, PCR Not Detected (NotDetected); Parainfluenza 3, PCR Not Detected (NotDetected); Parainfluenza 4, PCR Not Detected (NotDetected); Respiratory Syncytial Virus Not Detected (NotDetected)
[2021-05-16 20:01] LABS: Human Metapneumovirus Detected (NotDetected); Rhinovirus/Enterovirus Detected (NotDetected)
== END 2021-05-16 18:13 | disposition home or self-care (01) ==
PROVIDERS: Emergency Provider Nurse Practitioner Family; PCP Internal Medicine
DX: J20.9 Acute bronchitis, unspecified (principal); K21.9 Gastro-esophageal reflux disease without esophagitis; B34.8 Other viral infections of unspecified site
CPT/HCPCS: 71046; 87581; 87632; 87798; 99202; C9803; G0463; U0003; U0005

== ENCOUNTER 2022-11-28 12:10 | Emergency (ER) | payer MEDICAID, SELFPAY ==
[2022-11-28] VITALS (9 sets, daily range): BP systolic 103–130; BP diastolic 68–93; PULSE 64–77; RESP 18; TEMP 36.7–36.8; O2SAT 96–99; BMI 32.5
--- NOTE | 2022-11-28 13:17 | CT_ITS ---
FINAL REPORT CLINICAL HISTORY: ABD PAIN COMPARISON: 01/11/2021 FINDINGS: CT OF THE ABDOMEN AND PELVIS WITH CONTRAST Axial CT images of the abdomen and pelvis were obtained after the administration of IV contrast. Coronal and sagittal reformatted images were also obtained and reviewed. This study was performed with techniques to keep radiation doses as low as reasonably achievable (ALARA). Individualized dose reduction techniques using automated exposure control or adjustment of mA and/or kV according to the patient's size were employed. Abdomen: The lung bases are clear. The heart is normal in size. The liver shows fatty infiltration of the liver, without evidence of mass or biliary ductal dilatation. The gallbladder has been surgically resected. The spleen is unremarkable. No adrenal mass is present. The pancreas has an unremarkable appearance. There is a cyst in the lower pole of the left kidney, otherwise unremarkable views of the kidneys without evidence of mass or hydronephrosis. The aorta is normal in caliber. There is no free fluid or adenopathy. No mass or abnormal fluid collection is seen. Pelvis: The appendix is normal in appearance. The urinary bladder is unremarkable. No inflammatory process is seen. There is no evidence of mass or adenopathy. There is no evidence of bowel obstruction. The uterus has been surgically resected. IMPRESSION: No evidence of acute intra-abdominal process. Reviewed, Interpreted and Dictated by Tung Kaur III, MD Transcribed by Chelsea Dasilva Authenticated and . [facility]
[2022-11-28 13:20] LABS: Microscopic, Urine URINE MICROSCOPIC (MICROSCOPIC)
[2022-11-28 13:22] LABS: Appearance,Urine SL CLOUDY (Clear); Bilirubin,Urine Negative (Negative); Blood, Urine TRACE-I (Negative); Color,Urine YELLOW (Yellow); Glucose,Urine (UA) Negative (Negative); Ketones,Urine Negative (Negative); Leukocyte Esterase,Urine Negative (Negative); Nitrate,Urine Negative (Negative); Protein,Urine TRACE (Negative); Specific Gravity, Urine 1.025 (1.005-1.030); Urobilinogen,Urine 0.2 EU/dl (0.2)
[2022-11-28 13:23] LABS: Basophils % 0.7 % (0.1-2.0); Eosinophils # 0.1 K/mm3 (0.0-0.4); Eosinophils % 1.8 % (0.1-12.0); Hematocrit 44.3 % (37.0-47.0); Lymphocytes # 2.1 K/mm3 (0.7-4.5); Lymphocytes % 33.3 % (10-50); Mean Corpuscular HGB Conc 33.8 g/dL (31.8-35.4); Mean Corpuscular Hemoglobin 30.5 pg (27.0-31.2); Mean Corpuscular Volume 90.3 fl (81-99); Mean Platelet Volume 8.9 fl (7.4-10.4); Monocytes # 0.5 K/mm3 (0.1-1.0); Monocytes % 8.1 % (1.7-9.3); Neutrophils # 3.5 K/mm3 (1.8-7.8); Neutrophils % 56.1 % (37.0-80.0); Platelet Count 215 K/mm3 (142-424); White Blood Count 6.3 K/mm3 (4.8-10.8)
[2022-11-28 13:24] LABS: Chloride 108 mmol/L (98-107); Potassium 3.9 mmoL/L (3.5-5.1); Sodium 141 mmol/L (136-145)
[2022-11-28 13:27] LABS: Alanine Aminotransferase 31 U/L (12-78); Albumin Level 3.7 g/dl (3.5-5.0); Albumin/Globulin Ratio 1.2 (1.1-1.8); Alkaline Phosphatase 98 U/L (38-126); Anion Gap 12.9 mEq/L (5-15); Aspartate Amino Transferase 30 U/L (14-36); Bilirubin,Total 0.3 mg/dl (0.2-1.3); Blood Urea Nitrogen 20 mg/dl (7-17); Calcium 9.2 mg/dl (8.4-10.2); Carbon Dioxide 24 mmol/L (22.0-30.0); Creatinine Clearance Estimated 145 mL/min (50-200); Estimated Glomerular Filt Rate 93 ml/min (>60); GFR (African American) 112 ML/MIN (>60); Globulin 3.1 g/dL (1.3-3.2); Glucose 97 mg/dl (74-100); Lipase 47 U/L (23-300); Total Protein,Serum 6.8 g/dl (6.3-8.2)
[2022-11-28 13:33] LABS: Mucus,Urine 1+ /lpf; RBC,Urine Occasional #/hpf (0-3)
[2022-11-28 13:34] LABS: Bacteria,Urine 1+ /lpf
--- NOTE | 2022-11-28 13:42 | PC.NURSE ---
PT gone to RAD
--- NOTE | 2022-11-28 13:43 | HMH.EDGENADL ---
Discharge Plan Disposition Patient Disposition: Home, Self-Care Condition: Good Prescriptions Prescriptions: New ondansetron 4 mg tablet,disintegrating 4 mg PO DAILY Qty: 30 0RF No Action pantoprazole 40 MG tablet,delayed release (DR/EC) 40 mg PO DAILY multivitamin 1 EACH tablet 1 each PO DAILY promethazine-DM 120 ML syrup 5 ml PO Q6HP PRN (Reason: Cough) Qty: 240 0RF methylprednisolone 4 MG tablets,dose pack 4 mg PO DIRECTED 6 Days Qty: 21 0RF albuterol sulfate 8.5 GM HFA aerosol inhaler 2 puffs IH Q6HP PRN (Reason: Shortness Of Breath) 30 Days Qty: 1 5RF amoxicillin-pot clavulanate 1 EACH tablet 500 mg PO TID Qty: 30 0RF Referrals Follow up/Referrals: Angel Edwards II, MD [Primary Care Provider] - See instructions Clinical Impressions Clinical Impression: Nausea & vomiting, Bloody diarrhea Instructions Patient Instructions: DI for Acute Abdominal Pain Discharge ED Provider: Familia Hawk General Adult HPI <Familia Hawk MD - Last Filed: 11/28/22 15:05> General Chief complaint: Abdominal Pain Stated complaint: blood in stool, diarrhea, vomiting Time Seen by Provider: 11/28/22 13:32 Mode of Arrival: Family Vehicle Source of Information: Patient Limitations: No Limitations Description of Symptoms (Recalled from ER Triage Doc. by RN): Pt c/o generalized ABD pain with nausea, vomiting, and diarrhea that began on Sunday (11/25). Reports it has continued to worsen and now began to pass blood in stool. She reports 1 small blood clot in stool today with her recent BM. She does note a hx of hemorrhoids & GERD. History of Present Illness HPI narrative: Is a 42-year-old female here with nausea vomiting abdominal pain and diarrhea for 4 days. States that today she started having blood in her bowel movements and some crampy abdominal discomfort. Describes the pain as diffuse nonlocalized no fevers or chills she did feel little warm but no objective fever. No history of any abdominal pathology in the past. No sick contacts that she is aware of no recent antibiotic use or working in healthcare environment. Related Data Home Medications Medication Instructions Recorded Confirmed pantoprazole 40 mg tablet,delayed 40 mg PO DAILY GERDS 08/07/20 05/16/21 release multivitamin 1 each PO DAILY Supplement 05/16/21 05/16/21 Previous Rx's Medication Instructions Recorded albuterol sulfate 90 mcg/actuation 2 puffs IH Q6HP PRN Shortness Of 05/16/21 aerosol inhaler Breath 30 days #1 ea amoxicillin 500 mg-potassium 500 mg PO TID #30 tabs 05/16/21 clavulanate 125 mg tablet methylprednisolone 4 mg tablets in 4 mg PO DIRECTED 6 days #21 05/16/21 a dose pack packets promethazine-DM 6.25 mg-15 mg/5 mL 5 ml PO Q6HP PRN Cough #240 mL 05/16/21 oral syrup ondansetron 4 mg disintegrating 4 mg PO DAILY #30 tabs 11/28/22 tablet Allergies Allergy/AdvReac Type Severity Reaction Status Date / Time ketorolac [From TORADOL] Allergy Unknown I-RASH Verified 05/16/21 16:38 latex [LATEX] Allergy Unknown RASH, Verified 05/16/21 16:38 ITCHING loratadine [LORATADINE] Allergy Unknown MIGRAINES Verified 05/16/21 16:38 tramadol [TRAMADOL] Allergy Unknown I-RASH Verified 05/16/21 16:38 Sulfa (Sulfonamide Allergy Verified 05/16/21 16:38 Antibiotics) [facility] <Familia Hawk MD - Last Filed: 11/28/22 15:05> [facility] Disclaimer: The information contained in this section may have been updated after the patient was seen, as this information can be updated by other users. Social History (Updated 11/28/22 @ 13:34 by Tiffani Evans RN) Smoking Status: Former smoker second hand exposure: Yes alcohol intake: current substance use type: marijuana counseling given: Yes current occupational status: employed Travel in the last 8 weeks: None household members: other housing: other current occupation: [employer] current occupational e
--- NOTE | 2022-11-28 13:48 | PC.NURSE ---
Pt returned from RAD
--- NOTE | 2022-11-28 15:29 | PC.NURSE ---
contacted rad to check on status of ct results, states a preliminary result is available and will send it down
--- NOTE | 2022-11-28 16:30 | PC.NURSE ---
Dr. Richard at BS to update pt of results
== END 2022-11-28 16:38 | disposition home or self-care (01) ==
PROVIDERS: Emergency Provider Student in an Organized Health Care Education/Training Program; PCP Internal Medicine
DX: R19.7 Diarrhea, unspecified (principal); K92.1 Melena; R10.84 Generalized abdominal pain; Z87.891 Personal history of nicotine dependence
CPT/HCPCS: 74177; 80053; 81001; 83605; 83690; 85025; 96361; 96374; 96375; 99285; J2405; Q9967

== ENCOUNTER 2023-01-24 13:37 | Emergency (ER) | payer MEDICAID, SELFPAY ==
[2023-01-24 14:25] VITALS: BP 130/79; PULSE 84; RESP 20; TEMP 36.8; O2SAT 97; BMI 34.3
[2023-01-24 14:50] LABS: UTC Influenza A Antigen Negative (Negative); UTC Influenza B Antigen Negative (Negative); UTC Strep Screen (Rapid) Negative (Negative)
--- NOTE | 2023-01-24 15:00 | EXP.UTC ---
Discharge Plan Disposition Patient Disposition: Home, Self-Care Condition: Good Prescriptions Prescriptions: New azithromycin [Zithromax Z-Lonnie] 250 mg tablet See Rx Instructions .ROUTE .COMPLEX 5 Days Qty: 6 0RF Rx Instructions: For 250 mg dose pack: take 500 mg today (day 1), then 250 mg for 4 days (days 2-5) fluticasone propionate [Flonase Allergy Relief] 50 mcg/actuation spray,suspension 1 - 2 spray intranasal DAILY Qty: 16 0RF Rx Instructions: administer into each nostril daily No Action pantoprazole 40 mg tablet,delayed release (DR/EC) 40 mg PO DAILY dextroamphetamine-amphetamine 20 mg tablet 20 mg PO DAILY lisdexamfetamine [Vyvanse] 50 mg capsule 50 mg PO DAILY desvenlafaxine succinate 50 mg tablet extended release 24 hr 50 mg PO DAILY Referrals Follow up/Referrals: Angel Edwards II, MD [Primary Care Provider] - See instructions Activity Restrictions/Add. Instructions Additional Instructions/Restrictions: *Monitor Temp, Over the counter Motrin or Tylenol as directed/as needed Tylenol every 4 hours and Motrin every 6 hours (as long as your family doctor has told you that you can take it) for fever or pain. and straight to ER if unable to lower temp less than 101.0 after medication given *Warm salt water gargles may help to soothe the throat *Throat Lozenges? *Warm fluids like tea with honey may help to soothe the throat? *Sleep elevated *Humidifier/Vaporizer *Flonase 2 sprays in each nostril daily but be aware that it may take 2-3 days before you notice improvement Follow up IMMEDIATELY for new or worsening symptoms or no Noticeable improvement over the next 48-72 hours. 911 for difficulty breathing or swallowing Clinical Impressions Clinical Impression: Sinusitis Qualifiers: Sinusitis location: unspecified location Chronicity: unspecified Qualified Code(s): J32.9 - Chronic sinusitis, unspecified Stand Alone Forms Stand Alone Forms: Work/School Release Instructions Patient Instructions: DI for Sinusitis, Sinusitis Discharge ED Provider: Ginger Villanueva [facility] General Stated complaint: diarrhea, sore throat, body aches Mode of Arrival: Ambulatory Source of Information: Patient Limitations: No Limitations Time Seen by Provider: 01/24/23 14:55 Description of Symptoms (Recalled from Triage Doc. by RN): PATIENT C/O BODY ACHES, SORE THROAT, DIARRHEA, AND HEADACHE X 5 DAYS HEENT Symptoms (Recalled from RN notes): Yes Resp Symptoms (Recalled from RN notes): No Skin Symptoms (Recalled from RN notes): No MS Symptoms (Recalled from RN notes): No Functional Status (Recalled from RN notes): WNL History of Present Illness Provider Complaint: Patient states that she hasnt been feeling well States that she has been having sore throat, sinus pain and pressure, body aches, diarrhea and headache for 5 days States that today she was not feeling any better so she came in to get checked Related Data Home Medications Medication Instructions Recorded Confirmed desvenlafaxine succinate 50 mg 50 mg PO DAILY Depression 01/24/23 01/24/23 tablet,extended release 24 hr dextroamphetamine-amphetamine 20 20 mg PO DAILY ADD 01/24/23 01/24/23 mg tablet lisdexamfetamine 50 mg capsule 50 mg PO DAILY ADD 01/24/23 01/24/23 (Vyvanse) pantoprazole 40 mg tablet,delayed 40 mg PO DAILY GERD 01/24/23 01/24/23 release Previous Rx's Medication Instructions Recorded azithromycin 250 mg tablet See Rx Instructions PO .COMPLEX 5 01/24/23 (Zithromax Z-Lonnie) days #6 tabs fluticasone propionate 50 1 - 2 spray intranasal DAILY #16 01/24/23 mcg/actuation nasal grams spray,suspension (Flonase Allergy Relief) Allergies Allergy/AdvReac Type Severity Reaction Status Date / Time ketorolac [From TORADOL] Allergy Unknown I-RASH Verified 05/16/21 16:38 latex [LATEX] Allergy Unknown RASH, Verified 05/16/21 16:38 ITCHING lorata
[2023-01-24 15:17] VITALS: BP 130/79; PULSE 84; RESP 20; TEMP 36.8; O2SAT 97
== END 2023-01-24 15:23 | disposition home or self-care (01) ==
PROVIDERS: Emergency Provider Nurse Practitioner; PCP Internal Medicine
DX: J01.90 Acute sinusitis, unspecified (principal); R19.7 Diarrhea, unspecified; K21.9 Gastro-esophageal reflux disease without esophagitis; F90.9 Attention-deficit hyperactivity disorder, unspecified type; F32.A Depression, unspecified; Z87.891 Personal history of nicotine dependence
CPT/HCPCS: 87635; 87804; 87880; 99212; 99214; G0463

== ENCOUNTER 2023-03-21 13:48 | Emergency (ER) | payer MEDICAID, SELFPAY ==
[2023-03-21 13:49] VITALS: BP 131/81; PULSE 80; RESP 19; TEMP 36.7; O2SAT 98; BMI 36.6
--- NOTE | 2023-03-21 13:52 | XR_ITS ---
FINAL REPORT CLINICAL HISTORY: PAIN COMPARISON: None FINDINGS: RIGHT WRIST Three views demonstrate no acute fracture or dislocation. The visualized joint spaces are normally aligned. The soft tissues are unremarkable. IMPRESSION: No acute bony abnormality. Reviewed, Interpreted and Dictated by Randall Fitzpatrick MD Transcribed by Chelsea Dasilva Authenticated and [facility]
--- NOTE | 2023-03-21 15:04 | EXP.UTC ---
Discharge Plan Disposition Patient Disposition: Home, Self-Care Condition: Good Prescriptions Prescriptions: No Action pantoprazole 40 mg tablet,delayed release (DR/EC) 40 mg PO DAILY dextroamphetamine-amphetamine 20 mg tablet 20 mg PO DAILY lisdexamfetamine [Vyvanse] 50 mg capsule 50 mg PO DAILY desvenlafaxine succinate 50 mg tablet extended release 24 hr 50 mg PO DAILY azithromycin [Zithromax Z-Lonnie] 250 mg tablet See Rx Instructions .ROUTE .COMPLEX 5 Days Qty: 6 0RF Rx Instructions: For 250 mg dose pack: take 500 mg today (day 1), then 250 mg for 4 days (days 2-5) fluticasone propionate [Flonase Allergy Relief] 50 mcg/actuation spray,suspension 1 - 2 spray intranasal DAILY Qty: 16 0RF Rx Instructions: administer into each nostril daily Referrals Follow up/Referrals: Angel Edwards II, MD [Primary Care Provider] - See instructions Activity Restrictions/Add. Instructions Additional Instructions/Restrictions: *RICE, Rest the extremity, Ice 15-20 minutes 3-4 times daily, Compress- wear the gray wrap as discussed as much as possible to help reduce swelling and pain, Elevate the extremity when at rest *Gray wrap/velcro wrist splint is for support and help control swelling, use it except in the shower. Be sure that is not to tight but not to loose either *Elevate when resting? *Ibuprofen 600mg every 6-8 hours as needed for pain an inflammation. If need something more can take Tylenol in between doses of Ibuprofen to help Immediately follow up with your family doctor for new or worsening of symptoms, or no noticeable improvement over the next 3-5 days Clinical Impressions Clinical Impression: Contusion, wrist Qualifiers: Encounter type: initial encounter Laterality: right Qualified Code(s): S60.211A - Contusion of right wrist, initial encounter Stand Alone Forms Stand Alone Forms: Work/School Release Instructions Patient Instructions: Contusion, DI for Contusion, How To Perform RICE (Rest, Ice, Compress, Elevate) Discharge ED Provider: Ginger Villanueva [facility] [place] General Stated complaint: AO, pain in right wrist Mode of Arrival: Ambulatory Source of Information: Patient Limitations: No Limitations Time Seen by Provider: 03/21/23 14:10 Description of Symptoms (Recalled from Triage Doc. by RN): Patient complaint of right wrist pain since Sunday. Also requesting a flu shot and tb skin test. HEENT Symptoms (Recalled from RN notes): No Resp Symptoms (Recalled from RN notes): No Skin Symptoms (Recalled from RN notes): No MS Symptoms (Recalled from RN notes): Yes Functional Status (Recalled from RN notes): wnl History of Present Illness Provider Complaint: Patient states that she was sweeping her floor when she came back and hit her right wrist area against the corner of the wall States that she has been having bruising and pain in her wrist ever since Related Data Home Medications Medication Instructions Recorded Confirmed desvenlafaxine succinate 50 mg 50 mg PO DAILY Depression 01/24/23 01/24/23 tablet,extended release 24 hr dextroamphetamine-amphetamine 20 20 mg PO DAILY ADD 01/24/23 01/24/23 mg tablet lisdexamfetamine 50 mg capsule 50 mg PO DAILY ADD 01/24/23 01/24/23 (Vyvanse) pantoprazole 40 mg tablet,delayed 40 mg PO DAILY GERD 01/24/23 01/24/23 release Previous Rx's Medication Instructions Recorded azithromycin 250 mg tablet See Rx Instructions PO .COMPLEX 5 01/24/23 (Zithromax Z-Lonnie) days #6 tabs fluticasone propionate 50 1 - 2 spray intranasal DAILY #16 01/24/23 mcg/actuation nasal grams spray,suspension (Flonase Allergy Relief) Allergies Allergy/AdvReac Type Severity Reaction Status Date / Time ketorolac [From TORADOL] Allergy Unknown I-RASH Verified 05/16/21 16:38 latex [LATEX] Allergy Unknown RASH, Verified 05/16/21 16:38 ITCHING loratadine [LORATADINE] Allergy Unknown MIGRAINES Verified 05/16/21 16:38 tramadol [TRAMADOL] Allergy Unknown I-RASH Verified 05/16/21 16:38 Sulfa (Sulfonamide Allergy Verified 05/16/21 16:38 Antibiotics) Worker's Comp Is this a Worker's Comp case?: No [facility] Disclaimer: The information contained in this section may have been updated after the patient was seen, as this information can be updated by other users. Medical History (Updated 03/21/23 @ 15:11 by Ginger Villanueva APRN) ADD (attention deficit disorder) Depression GERD (gastroesophageal reflux disease) History of stroke Migraine Urinary tract infection Surgical History (Updated 01/24/23 @ 14:35 by Dayana Tripp, RN) H/O wisdom tooth extraction History of cholecystectomy History of hysterectomy History of tonsillectomy Social History (Updated 11/28/22 @ 13:34 by Tiffani Evans RN) Smoking Status: Former smoker second hand exposure: Yes alcohol intake: current substance use type: marijuana counseling given: Yes current occupational status: employed Travel in the last 8 weeks: None household members: other housing: other current occupation: [employer] current occupational exposures/hazards: No caffeine: Yes ROS Obtained: Yes All systems reviewed & no additional complaints except as documented and Yes Systems reviewed as appropriate & no additional complaints except as documented Constitutional Constitutional: Reports system reviewed and no additional complaints, except as documented and Reports as per HPI Cardiovascular Cardiovascular: Reports system reviewed and no additional complaints, except as documented and Reports as per HPI Respiratory Respiratory: Reports system reviewed and no additional complaints, except as documented and Reports as per HPI Gastrointestinal Gastrointestingal: Reports system reviewed and no additional complaints, except as documented and as per HPI Musculoskeletal Musculoskeletal: Reports system reviewed and no additional complaints, except as documented and Reports as per HPI Comments: Pain and bruising in right wrist since hitting it against corner of wall at home Physical Exam General General appearance: alert and in no apparent distress ENT ENT exam: Present mucous membranes moist Respiratory Respiratory exam: Present normal lung sounds bilaterally; Absent respiratory distress or wheezes Cardiovascular Cardiovascular exam: Present regular rate, normal rhythm and normal heart sounds Expanded Upper Extremity Exam Right: Forearm/Wrist exam: Present tenderness and ecchymosis; Absent swelling, abrasion, laceration, dislocation or erythema Hand exam: Present normal inspection L/R Arms Top View: 1. two small bruised areas noted no swelling Neurological Exam Neurological exam: Present alert, oriented X3 and normal gait Medical Decision Making Valentin Inquiry Pt receiving controlled substance: No Valentin was queried for this patient: No Vital Signs: 03/21/23 13:49 Temperature 98.1 F Temperature Source Oral Pulse Rate [Radial] 80 Respiratory Rate 19 Blood Pressure [Right Arm] 131/81 Blood Pressure Mean [Right Arm] 97 Blood Pressure Source [Right Arm] Automatic Cuff Blood Pressure Position [Right Arm] Sitting 02 Sat by Pulse Oximetry 98 Oxygen Delivery Method Room Air Orders (Tests/Meds): ORDERS Category Date Time Status XR wrist RT min 3V Stat Exams 03/21/23 13:52 Taken Radiology Data #1: Image(s): Wrist Image Reviewed: Yes I reviewed the patient's radiology image Preliminary Findings: Normal/NAD Procedures Orthopedic Splinting/Casting Injury #1: Side: right Upper Extremity Injury Location: wrist Upper Extremity Immobilizer: wrist splint Post Cast/Splinting Neuro Status: intact and no change Post Cast/Splinting Vasc Status: intact and no change
[2023-03-21] MEDS: TUBERCULIN 5 UNITS/0.1ML 1ML VIAL ID (15:39)
[2023-03-21] MEDS: FLU VACC QS2023-24(6MO+)/PF 60 MCG/0.5 ML SYRINGE IM (15:49)
[2023-03-21 15:51] VITALS: BP 131/81; PULSE 80; RESP 19; TEMP 36.7; O2SAT 98
--- NOTE | 2023-03-26 10:28 | PC.NURSE ---
Accessed pt chart to complete ortho paper
== END 2023-03-21 15:51 | disposition home or self-care (01) ==
PROVIDERS: Emergency Provider Nurse Practitioner; PCP Internal Medicine
DX: M25.531 Pain in right wrist (principal); S60.211A Contusion of right wrist, initial encounter; K21.9 Gastro-esophageal reflux disease without esophagitis; Z23 Encounter for immunization; Z87.891 Personal history of nicotine dependence; W22.8XXA Striking against or struck by other objects, initial encounter
CPT/HCPCS: 73110; 86580; 90471; 99212; 99214; G0463

== ENCOUNTER 2024-04-16 14:55 | Emergency (ER) | payer MEDICAID, SELFPAY ==
[2024-04-16 15:10] VITALS: BP 129/78; PULSE 103; RESP 19; TEMP 37.3; O2SAT 97; BMI 36.3
[2024-04-16 15:27] LABS: UTC Influenza A Antigen Positive (Negative); UTC Influenza B Antigen Negative (Negative)
--- NOTE | 2024-04-16 15:28 | ED_ITS ---
Discharge Plan Disposition Patient Disposition: Home, Self-Care Condition: Good Prescriptions Prescriptions: New oseltamivir [Tamiflu] 75 mg capsule 75 mg PO BID 5 Days Qty: 10 0RF No Action nitroglycerin 0.3 mg tablet, sublingual 0.3 mg sublingual DAILYP PRN (Reason: Pain) amlodipine 2.5 mg tablet 2.5 mg PO DAILY trazodone 100 mg tablet 100 mg PO DAILY pantoprazole 40 mg tablet,delayed release (DR/EC) 40 mg PO DAILY dextroamphetamine-amphetamine 20 mg tablet 20 mg PO DAILY lamotrigine 100 mg tablet 100 mg PO DAILY lisdexamfetamine [Vyvanse] 50 mg capsule 50 mg PO DAILY desvenlafaxine succinate 100 mg tablet extended release 24 hr 100 mg PO DAILY Referrals Follow up/Referrals: Angel Edwards II, MD [Primary Care Provider] - See instructions Activity Restrictions/Add. Instructions Additional Instructions/Restrictions: No sign of a bacterial infection. Likely viral. Viruses can take 7-14 days to run their course. Nasal saline and bulb syringe or nose Chasity to remove nasal drainage to help with nasal congestion. Hard to eat, drink, sleep with nasal congestion so important to keep this cleaned out. Monitor temp. Tylenol or Motrin as needed for pain or fever Encourage fluids, water, Gatorade, Powerade, Pedialyte if /toddler/child Warm salt water gargles Warm fluids Sore throat lozenges Sleep elevated Humidifier/vaporizer Follow-up immediately for new or worsening symptoms or no noticeable improvement over the next 48-72 hours. Clinical Impressions Clinical Impression: Influenza A Instructions Patient Instructions: DI for Influenza -- Adult Print Language Print Language: Serbian Discharge ED Provider: Johnnie ([facility] [place] General Stated complaint: v/d cough fever body aches Mode of Arrival: Ambulatory Source of Information: Patient Limitations: No Limitations Time Seen by Provider: 04/16/24 15:28 Description of Symptoms (Recalled from Triage Doc. by RN): PATIENT C/O JOINT AND BODY ACHES SINCE YESTERDAY HEENT Symptoms (Recalled from RN notes): No Resp Symptoms (Recalled from RN notes): No Skin Symptoms (Recalled from RN notes): No MS Symptoms (Recalled from RN notes): Yes Functional Status (Recalled from RN notes): WNL History of Present Illness Provider Complaint: 43-year-old female presents for complaints of joint pain and body aches since yesterday Related Data Home Medications ?Medication ?Instructions ?Recorded ?Confirmed amlodipine 2.5 mg tablet 2.5 mg PO DAILY 04/16/24 04/16/24 desvenlafaxine succinate 100 mg 100 mg PO DAILY 04/16/24 04/16/24 tablet,extended release 24 hr dextroamphetamine-amphetamine 20 20 mg PO DAILY 04/16/24 04/16/24 mg tablet lamotrigine 100 mg tablet 100 mg PO DAILY 04/16/24 04/16/24 lisdexamfetamine 50 mg capsule 50 mg PO DAILY 04/16/24 04/16/24 (Vyvanse) nitroglycerin 0.3 mg sublingual 0.3 mg sublingual DAILYP PRN Pain 04/16/24 04/16/24 tablet pantoprazole 40 mg tablet,delayed 40 mg PO DAILY 04/16/24 04/16/24 release trazodone 100 mg tablet 100 mg PO DAILY 04/16/24 04/16/24 Previous Rx's ?Medication ?Instructions ?Recorded oseltamivir 75 mg capsule (Tamiflu) 75 mg PO BID 5 days #10 caps 04/16/24 Allergies Allergy/AdvReac Type Severity Reaction Status Date / Time ketorolac (From TORADOL) Allergy Unknown I-RASH Verified 05/16/21 16:38 latex (LATEX) Allergy Unknown RASH, Verified 05/16/21 16:38 ITCHING loratadine (LORATADINE) Allergy Unknown MIGRAINES Verified 05/16/21 16:38 tramadol (TRAMADOL) Allergy Unknown I-RASH Verified 05/16/21 16:38 Sulfa (Sulfonamide Allergy Verified 05/16/21 16:38 Antibiotics) Worker's Comp Is this a Worker's Comp case?: No [facility] Disclaimer: The information contained in this section may have been updated after the patient was seen, as this information can be updated by other users. Medical History , [employer]) Urinary tract infection Migraine History of stroke ADD (attention deficit disorder) Depression GERD (gastroesophageal reflux disease) Surgical History , [employer]) H/O wisdom tooth extraction History of tonsillectomy History of hysterectomy History of cholecystectomy Social History , [employer]) Smoking Status: Former smoker second hand exposure: Yes alcohol intake: current alcohol intake frequency: other substance use type: marijuana counseling given: Yes current occupational status: employed Travel in the last 8 weeks: None household members: other housing: other current occupation: [employer] current occupational exposures/hazards: No caffeine: Yes Have you lived/traveled outside [place] in past 30 days?: No Contact w/someone who lives/traveled outside [place] past 30 days?: No Exposure to someone with infectious disease in past 14 days?: No Do you have a fever (greater than 100.4 F or 38 C)?: No Have you tested positive for COVID-19: No Exposed to someone with COVID-19 in past 14 days?: No Do you have a sore throat?: No Do you have a cough?: No Do you have any weakness?: Yes Do you have any diarrhea?: Yes Are you experiencing any unusual bleeding?: No Do you have any muscle aches/pain?: No Do you have any abdominal pain?: No Are you experiencing loss of taste or smell?: No ROS Obtained: Yes Systems reviewed as appropriate & no additional complaints except as documented Constitutional Constitutional: Reports system reviewed and no additional complaints, except as documented, Reports as per HPI, Reports body ache and Reports chills Musculoskeletal Musculoskeletal: Reports system reviewed and no additional complaints, except as documented, Reports as per HPI and Reports arthralgias Physical Exam General General appearance: alert and in no apparent distress ENT ENT exam: Present normal exam, normal oropharynx, mucous membranes moist and TM's normal bilaterally Respiratory Respiratory exam: Present normal lung sounds bilaterally Cardiovascular Cardiovascular exam: Present regular rate and normal rhythm Neurological Exam Neurological exam: Present alert and oriented X3 Skin Skin exam: Present warm and intact Medical Decision Making Medical Records Medical records reviewed: Yes I reviewed the patient's medical records. Screening: Per USPSTF and CDC recommendations, given the prevalence of disease in our region, it is our hospital?s policy to screen for HIV and viral Hepatitis for all patients aged 18 and over and those with ongoing risk factors. Valentin Inquiry Pt receiving controlled substance: No Vital Signs: 04/16/24 15:10 Temperature 99.2 F Temperature Source Oral Pulse Rate [Left Brachial] 103 H Respiratory Rate 19 Blood Pressure [Left Arm] 129/78 Blood Pressure Mean [Left Arm] 95 Blood Pressure Source [Left Arm] Automatic Cuff Blood Pressure Position [Left Arm] Sitting 02 Sat by Pulse Oximetry 97 Oxygen Delivery Method Room Air
[2024-04-16 15:40] VITALS: BP 129/78; PULSE 103; RESP 19; TEMP 37.3; O2SAT 97
== END 2024-04-16 15:46 | disposition home or self-care (01) ==
PROVIDERS: Emergency Provider Nurse Practitioner Family; PCP Internal Medicine
DX: J10.1 Influenza due to other identified influenza virus with other respiratory manifestations (principal)
CPT/HCPCS: 81003; 87804; 99213; G0381

== ENCOUNTER 2024-04-23 16:36 | Emergency (ER) | payer MEDICAID, SELFPAY ==
[2024-04-23 16:38] VITALS: BP 140/100; PULSE 105; RESP 18; TEMP 36.7; O2SAT 98; BMI 36.7
--- NOTE | 2024-04-23 16:51 | HMH.EDGENADL ---
Discharge Plan Disposition Patient Disposition: Home, Self-Care Condition: Good Prescriptions Prescriptions: No Action nitroglycerin 0.3 mg tablet, sublingual 0.3 mg sublingual DAILYP PRN (Reason: Pain) amlodipine 2.5 mg tablet 2.5 mg PO DAILY trazodone 100 mg tablet 100 mg PO DAILY pantoprazole 40 mg tablet,delayed release (DR/EC) 40 mg PO DAILY dextroamphetamine-amphetamine 20 mg tablet 20 mg PO DAILY lamotrigine 100 mg tablet 100 mg PO DAILY lisdexamfetamine [Vyvanse] 50 mg capsule 50 mg PO DAILY desvenlafaxine succinate 100 mg tablet extended release 24 hr 100 mg PO DAILY Referrals Follow up/Referrals: Angel Edwards II, MD [Primary Care Provider] - See instructions Activity Restrictions/Add. Instructions Additional Instructions/Restrictions: Please follow-up with your PCP within 48 hours for recheck. If you have any new or worsening signs or symptoms follow-up sooner or return to the ER as needed. Clinical Impressions Clinical Impression: Generalized anxiety disorder Print Language Print Language: [place] Discharge ED Provider: Norman Mary General Adult HPI <ELEANOR Waller - Last Filed: 04/23/24 21:25> General Chief complaint: Arrhythmia/Palpitations Stated complaint: feels like heart racing, shaky, dizzy Time Seen by Provider: 04/23/24 16:51 Mode of Arrival: Ambulatory Source of Information: Patient Limitations: No Limitations Description of Symptoms (Recalled from ER Triage Doc. by RN): PT STATES I FEEL LIKE EVERYTHING IN MY BODY IS SHAKING, EVEN MY EYE BALLS REPORTS HEART RACING. History of Present Illness HPI narrative: Patient presents for evaluation of palpitation. Patient states that when she awoke today she began feeling shaky and has remained so most of the day. She states that she feels like her heart is racing and she feels anxious. She denies any chest pain shortness of breath fever chills hemoptysis hematochezia melena nausea vomit diarrhea. Patient does have significant past medical history of bipolar disorder and ADHD. Patient also reports that she had the flu 2 weeks ago and has cut back on her ADHD medicine because she has not felt well. Related Data Home Medications ?Medication ?Instructions ?Recorded ?Confirmed amlodipine 2.5 mg tablet 2.5 mg PO DAILY 04/16/24 04/23/24 desvenlafaxine succinate 100 mg 100 mg PO DAILY 04/16/24 04/23/24 tablet,extended release 24 hr dextroamphetamine-amphetamine 20 20 mg PO DAILY 04/16/24 04/23/24 mg tablet lamotrigine 100 mg tablet 100 mg PO DAILY 04/16/24 04/23/24 lisdexamfetamine 50 mg capsule 50 mg PO DAILY 04/16/24 04/23/24 (Vyvanse) nitroglycerin 0.3 mg sublingual 0.3 mg sublingual DAILYP PRN Pain 04/16/24 04/23/24 tablet pantoprazole 40 mg tablet,delayed 40 mg PO DAILY 04/16/24 04/23/24 release trazodone 100 mg tablet 100 mg PO DAILY 04/16/24 04/23/24 Allergies Allergy/AdvReac Type Severity Reaction Status Date / Time ketorolac (From TORADOL) Allergy Unknown I-RASH Verified 04/23/24 16:51 latex (LATEX) Allergy Unknown RASH, Verified 04/23/24 16:51 ITCHING loratadine (LORATADINE) Allergy Unknown MIGRAINES Verified 04/23/24 16:51 Sulfa (Sulfonamide Allergy Unknown Other Verified 04/23/24 16:51 Antibiotics) tramadol (TRAMADOL) Allergy Unknown I-RASH Verified 04/23/24 16:51 [facility] <ELEANOR Waller - Last Filed: 04/23/24 21:25> [facility] Disclaimer: The information contained in this section may have been updated after the patient was seen, as this information can be updated by other users. 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) H/O wisdom tooth extraction History of tonsillectomy History of hysterectomy History of cholecystectomy Social History Smoking Status: Former smoker second hand exposure: Yes alcohol intake: current alcohol intake frequency: other substance use type: marijuana counseling given: Yes current occupational status: employed Travel in the last 8 weeks: None household members: other housing: other current occupation: [employer] current occupational exposures/hazards: No caffeine: Yes Have you lived/traveled outside [place] in past 30 days?: No Contact w/someone who lives/traveled outside US past 30 days?: No Exposure to someone with infectious disease in past 14 days?: No Do you have a fever (greater than 100.4 F or 38 C)?: No Have you tested positive for COVID-19: No Exposed to someone with COVID-19 in past 14 days?: No Do you have a sore throat?: No Do you have a cough?: No Do you have any weakness?: Yes Do you have any diarrhea?: No Are you experiencing any unusual bleeding?: No Do you have any muscle aches/pain?: No Do you have any abdominal pain?: No Are you experiencing loss of taste or smell?: No Other Medical History Have you received the Flu Vaccine for this season: Yes Have you received the Pneumonia Vaccine: No <ELEANOR Waller - Last Filed: 04/23/24 21:25> ROS Obtained: Yes Systems reviewed as appropriate & no additional complaints except as documented Physical Exam <ELEANOR Waller - Last Filed: 04/23/24 21:25> General General appearance: alert and in no apparent distress Respiratory Respiratory exam: Present normal lung sounds bilaterally Cardiovascular Cardiovascular exam: Present tachycardia Neurological Exam Neurological exam: Present alert and oriented X3 Psychiatric Psychiatric exam: Present normal affect Medical Decision Making <ELEANOR Waller - Last Filed: 04/23/24 21:25> Medical Records Medical records reviewed: Yes I reviewed the patient's medical records. Screening: Per USPSTF and CDC recommendations, given the prevalence of disease in our region, it is our hospital?s policy to screen for HIV and viral Hepatitis for all patients aged 18 and over and those with ongoing risk factors. Valentin Inquiry Pt receiving controlled substance: No Vital Signs: 04/23/24 16:38 04/23/24 17:00 04/23/24 18:47 Temperature 98.0 F 98 F Temperature Source Oral Pulse Rate 96 H 101 H Pulse Rate [Apical] 105 H Respiratory Rate 18 18 Blood Pressure 129/82 130/97 H Blood Pressure [Right Arm] 140/100 H Blood Pressure Mean [Right Arm] 113 Blood Pressure Source [Right Arm] Automatic Cuff Blood Pressure Position [Right Arm] Sitting 02 Sat by Pulse Oximetry 98 98 Oxygen Delivery Method Room Air Room Air Room Air Lab Data Lab results reviewed: Yes I reviewed the patient's lab results. Lab Results 04/23/24 17:28: WBC 6.2, RBC 4.53, Hgb 13.5, Hct 39.6, MCV 87.4, MCH 29.8, MCHC 34.1, RDW 12.0, Plt Count 212, MPV 10.9 H, Neut % (Auto) 47.6, Lymph % (Auto) 39.4, [place] % (Auto) 9.1, Eos % (Auto) 3.1, Baso % (Auto) 0.3, Neut # (Auto) 2.9, Lymph # (Auto) 2.4, [place] # (Auto) 0.6, Eos # (Auto) 0.2, Baso # (Auto) 0.0, PT 9.5, INR 0.85 L, D-Dimer 0.46, Sodium 141, Potassium 3.9, Chloride 108 H, Carbon Dioxide 25, Anion Gap 11.9, BUN 16, Creatinine 0.60, Estimated Creat Clear 189, Estimated GFR 110, Est GFR ( Amer) 133, Glucose 98, Calcium 9.0, Magnesium 2.0, Total Bilirubin < 0.1 L, AST 32, ALT 39, Alkaline Phosphatase 85, Troponin I < 0.01, NT-Pro-B Natriuret Pep < 20.0, Total Protein 6.6, Albumin 4.0, Globulin 2.6, Albumin/Globulin Ratio 1.5, HCV Ab ARIELA w/Rflx PCR Qn Reactive, HIV Ag/Ab Combo Qual Negative 04/23/24 17:28 04/23/24 17:28 Orders (Tests/Meds): ED MEDICATIONS Discontinued Medications Generic Name Dose Route Start Last Admin Trade Name Freq PRN Reason Stop Dose Admin Acetaminophen 1,000 mg 04/23/24 17:00 04/23/24 17:34 Acetaminophen 500mg Tab PO 04/23/24 17:01 1,000 mg ONCE ONE Administration Belladonna Alkaloids 60 ml 04/23/24 17:00 04/23/24 17:34 Belladonna Alkaloids 60 Ml Ml PO 04/23/24 17:01 60 ml ONCE ONE Administration Diazepam 5 mg 04/23/24 17:00 04/23/24 17:34 Diazepam 5mg Tablet PO 04/23/24 17:01 5 mg ONCE ONE Administration ORDERS Category Date Time Status Chest XR 2 view (NOT portable) [XR chest 2V] Stat Exams 04/23/24 17:01 Completed BNP [NT Pro Brain Natriuretic Pep.] Stat Lab 04/23/24 17:28 Completed CBC w/Auto Diff [Complete Blood Count Auto Diff] Stat Lab 04/23/24 17:28 Completed CMP [Comprehensive Metabolic Panel] Stat Lab 04/23/24 17:28 Completed D-Dimer Stat Lab 04/23/24 17:28 Completed HCV RNA PCR, Quant Stat Lab 04/23/24 17:28 Received HIV Combo Stat Lab 04/23/24 17:28 Completed Hepatitis C Ab Qual. W/ RFX Stat Lab 04/23/24 17:28 Completed INR [Prothrombin Time INR] Stat Lab 04/23/24 17:28 Completed Magnesium Stat Lab 04/23/24 17:28 Completed Trop I [Troponin I] Stat Lab 04/23/24 17:28 Completed Medical Decision Narrative: In summary patient is a 43-year-old female who presents to the emergency department for evaluation of subjective palpitations. Patient is initially normotensive at 140/100 tachycardic at 105 with sinus tachycardia on bedside monitor breathing 18 times a minute satting at 98% on room air upon arrival, afebrile at 98. Physical exam reveals clear breath sounds normal heart sounds no increased work of breathing or adventitious sounds no abdominal tenderness [place] Coma Score 15 patient is awake alert and oriented to person place and circumstance.. Differential diagnosis includes arrhythmia versus anxiety versus electrolyte abnormality versus therapeutic misadventure. Initial workup will be conducted with hematologic labs twelve-lead EKG plain from chest x-ray. Initial interventions include Tylenol ibuprofen Valium. Initial workup reviewed by me and her hematologic labs are nonactionable and reassuring including undetectable troponin and given that the patient had no chest pain symptoms of ACS and her EKG is normal a single troponin is sufficient. My informal interpretation of her plain film chest x-ray shows no acute processes. Twelve-lead EKG showed no evidence of ACS patient did however have complete resolution of her symptoms after initial intervention suggesting that a combination of anxiety and/or alteration in her medication schedule may be the root cause. Patient cautioned to not discontinue medication without physician supervision and she will follow-up within 48 hours with her PCP for recheck. Given this patient is appropriate for discharge with strict return precautions <Norman Mary MD - Last Filed: 04/24/24 04:16> Vital Signs: 04/23/24 16:38 04/23/24 17:00 04/23/24 18:47 Temperature 98.0 F 98 F Temperature Source Oral Pulse Rate 96 H 101 H Pulse Rate [Apical] 105 H Respiratory Rate 18 18 Blood Pressure 129/82 130/97 H Blood Pressure [Right Arm] 140/100 H Blood Pressure Mean [Right Arm] 113 Blood Pressure Source [Right Arm] Automatic Cuff Blood Pressure Position [Right Arm] Sitting 02 Sat by Pulse Oximetry 98 98 Oxygen Delivery Method Room Air Room Air Room Air Lab Data Lab Results 04/23/24 17:28: WBC 6.2, RBC 4.53, Hgb 13.5, Hct 39.6, MCV 87.4, MCH 29.8, MCHC 34.1, RDW 12.0, Plt Count 212, MPV 10.9 H, Neut % (Auto) 47.6, Lymph % (Auto) 39.4, [place] % (Auto) 9.1, Eos % (Auto) 3.1, Baso % (Auto) 0.3, Neut # (Auto) 2.9, Lymph # (Auto) 2.4, [place] # (Auto) 0.6, Eos # (Auto) 0.2, Baso # (Auto) 0.0, PT 9.5, INR 0.85 L, D-Dimer 0.46, Sodium 141, Potassium 3.9, Chloride 108 H, Carbon Dioxide 25, Anion Gap 11.9, BUN 16, Creatinine 0.60, Estimated Creat Clear 189, Estimated GFR 110, Est GFR ( Amer) 133, Glucose 98, Calcium 9.0, Magnesium 2.0, Total Bilirubin < 0.1 L, AST 32, ALT 39, Alkaline Phosphatase 85, Troponin I < 0.01, NT-Pro-B Natriuret Pep < 20.0, Total Protein 6.6, Albumin 4.0, Globulin 2.6, Albumin/Globulin Ratio 1.5, HCV Ab ARIELA w/Rflx PCR Qn Reactive, HIV Ag/Ab Combo Qual Negative Orders (Tests/Meds): ED MEDICATIONS Discontinued Medications Generic Name Dose Route Start Last Admin Trade Name Mg PRN Reason Stop Dose Admin Acetaminophen 1,000 mg 04/23/24 17:00 04/23/24 17:34 Acetaminophen 500mg Tab PO 04/23/24 17:01 1,000 mg ONCE ONE Administration Belladonna Alkaloids 60 ml 04/23/24 17:00 04/23/24 17:34 Belladonna Alkaloids 60 Ml Ml PO 04/23/24 17:01 60 ml ONCE ONE Administration Diazepam 5 mg 04/23/24 17:00 04/23/24 17:34 Diazepam 5mg Tablet PO 04/23/24 17:01 5 mg ONCE ONE Administration ORDERS Category Date Time Status Chest XR 2 view (NOT portable) [XR chest 2V] Stat Exams 04/23/24 17:01 Completed BNP [NT Pro Brain Natriuretic Pep.] Stat Lab 04/23/24 17:28 Completed CBC w/Auto Diff [Complete Blood Count Auto Diff] Stat Lab 04/23/24 17:28 Completed CMP [Comprehensive Metabolic Panel] Stat Lab 04/23/24 17:28 Completed D-Dimer Stat Lab 04/23/24 17:28 Completed HCV RNA PCR, Quant Stat Lab 04/23/24 17:28 Received HIV Combo Stat Lab 04/23/24 17:28 Completed Hepatitis C Ab Qual. W/ RFX Stat Lab 04/23/24 17:28 Completed INR [Prothrombin Time INR] Stat Lab 04/23/24 17:28 Completed Magnesium Stat Lab 04/23/24 17:28 Completed Trop I [Troponin I] Stat Lab 04/23/24 17:28 Completed ECG Data Tracing #1: I reviewed this ECG and interpreted as documented below: EKG interpreted by me personally at 1701. Normal sinus rhythm. No ST elevation or depression. QTc normal at 405. MD interval normal at 140. Ventricular rate of 87 bpm Medical Decision Narrative: In summary patient is a 43-year-old female who presents to the emergency department for evaluation of subjective palpitations. Patient is initially normotensive at 140/100 tachycardic at 105 with sinus tachycardia on bedside monitor breathing 18 times a minute satting at 98% on room air upon arrival, afebrile at 98. Physical exam reveals clear breath sounds normal heart sounds no increased work of breathing or adventitious sounds no abdominal tenderness [place] Coma Score 15 patient is awake alert and oriented to person place and circumstance.. Differential diagnosis includes arrhythmia versus anxiety versus electrolyte abnormality versus therapeutic misadventure. Initial workup will be conducted with hematologic labs twelve-lead EKG plain from chest x-ray. Initial interventions include Tylenol ibuprofen Valium. Initial workup reviewed by me and her hematologic labs are nonactionable and reassuring including undetectable troponin and given that the patient had no chest pain symptoms of ACS and her EKG is normal a single troponin is sufficient. My informal interpretation of her plain film chest x-ray shows no acute processes. Twelve-lead EKG showed no evidence of ACS patient did however have complete resolution of her symptoms after initial intervention suggesting that a combination of anxiety and/or alteration in her medication schedule may be the root cause. Patient cautioned to not discontinue medication without physician supervision and she will follow-up within 48 hours with her PCP for recheck. Given this patient is appropriate for discharge with strict return precautions I was consulted by the KAREN, and we discussed the complexity of the problems being addressed. I approve the treatment and management plan for this patient's care in the emergency department, thus performing a substantive portion of the medical decision making. Norman Mary MD Critical Care <ELEANOR Waller - Last Filed: 04/23/24 21:25> Critical Care Time Critical Care Time: No
--- NOTE | 2024-04-23 16:57 | ECG_ITS ---
APPROVED REPORT Exam: Resting ECG HR:87 bpm ECG Measurements Heart Rate [address] 140 P 51 QRSd 97 QRS 22 QT 361 T 61 QTc 405 Conclusion SINUS RHYTHM NORMAL ECG UNCONFIRMED REPORT Electronically signed by : GOLDEN MCGEE, 04/26/2024 00:43:37
[2024-04-23 17:00] VITALS: BP 129/82; PULSE 96; O2SAT 98
--- NOTE | 2024-04-23 17:01 | XR_ITS ---
PROCEDURE INFORMATION: Exam: XR Chest Exam date and time: 04/23/2024 4:56 PM Age: 43 years old Clinical indication: Pain; Chest pressure; Additional info: Chest pain TECHNIQUE: Imaging protocol: Radiologic exam of the chest. Views: 2 views. COMPARISON: CR XR CHEST 2V 05/16/2021 5:01 PM FINDINGS: Lungs: Minimal linear density overlying the anterior heart border on the lateral projection suggests minor parenchymal scarring or atelectasis. The lungs appear otherwise clear. No focal areas of consolidation. Pleural spaces: No pleural effusions. Negative for pneumothorax. Heart/Mediastinum: Cardiac silhouette and pulmonary vasculature are within range of normal. Bones/joints: There is no evidence of acute fracture. IMPRESSION: 1. Minimal linear density overlying the anterior heart border on the lateral projection suggests minor parenchymal scarring or atelectasis. 2. Otherwise, negative for an acute cardiopulmonary abnormality.
--- NOTE | 2024-04-23 17:28 | PC.NURSE ---
VERNABS is 148 @[id number].
--- NOTE | 2024-04-23 17:29 | PC.NURSE ---
PT ASSISTED TO BR
--- NOTE | 2024-04-23 17:31 | PC.NURSE ---
Rounded on the PT. The PT voices that she does not need anything at this time. Call light is within reach of the PT.
[2024-04-23] MEDS: BELLADONNA ALKALOIDS 60 ML ML PO (17:34)
[2024-04-23] MEDS: ACETAMINOPHEN 500MG TAB 1000 MG PO (17:34)
[2024-04-23] MEDS: diazePAM 5MG TABLET 5 MG PO (17:34)
[2024-04-23 17:36] LABS: Basophils % 0.3 % (0.1-2.0); Eosinophils # 0.2 K/mm3 (0.0-0.4); Eosinophils % 3.1 % (0.1-12.0); Hematocrit 39.6 % (37.0-47.0); Hemoglobin 13.5 g/dL (12.2-16.2); Lymphocytes # 2.4 K/mm3 (0.7-4.5); Lymphocytes % 39.4 % (10-50); Mean Corpuscular HGB Conc 34.1 g/dL (31.8-35.4); Mean Corpuscular Hemoglobin 29.8 pg (27.0-31.2); Mean Corpuscular Volume 87.4 fl (81-99); Mean Platelet Volume 10.9 fl (7.4-10.4); Monocytes # 0.6 K/mm3 (0.1-1.0); Monocytes % 9.1 % (1.7-9.3); Neutrophils # 2.9 K/mm3 (1.8-7.8); Neutrophils % 47.6 % (37.0-80.0); Platelet Count 212 K/mm3 (142-424); Red Blood Count 4.53 M/mm3 (4.20-5.40); White Blood Count 6.2 K/mm3 (4.8-10.8)
[2024-04-23 17:44] LABS: INR 0.85 (0.9-1.1); Prothrombin Time 9.5 seconds (9.2-12.1)
[2024-04-23 17:57] LABS: D-Dimer 0.46 ug/mL (0.0-0.5)
--- NOTE | 2024-04-23 18:32 | PC.NURSE ---
DON AT BEDSIDE TO EVALUATE PT
[2024-04-23 18:47] VITALS: BP 130/97; PULSE 101; RESP 18; TEMP 36.6; O2SAT 96
[2024-04-23 18:57] LABS: HIV Combo NEGATIVE (Negative)
[2024-04-23 19:05] LABS: Hepatitis C Ab Qual. W/ RFX REACTIVE (Negative)
[2024-04-23 19:18] LABS: Alanine Aminotransferase 39 U/L (12-78); Albumin/Globulin Ratio 1.5 (1.1-1.8); Alkaline Phosphatase 85 U/L (38-126); Anion Gap 11.9 mEq/L (5-15); Aspartate Amino Transferase 32 U/L (14-36); Blood Urea Nitrogen 16 mg/dl (7-17); Carbon Dioxide 25 mmol/L (22.0-30.0); Chloride 108 mmol/L (98-107); Creatinine Clearance Estimated 189 mL/min (50-200); Estimated Glomerular Filt Rate 110 ml/min (>60); GFR (African American) 133 ML/MIN (>60); Globulin 2.6 g/dL (1.3-3.2); Glucose 98 mg/dl (74-100); Potassium 3.9 mmoL/L (3.5-5.1); Sodium 141 mmol/L (136-145); Total Protein,Serum 6.6 g/dl (6.3-8.2)
[2024-04-23 19:24] LABS: Bilirubin,Total < 0.1 mg/dl (0.2-1.3)
[2024-04-23 19:30] LABS: NT Pro Brain Natriuretic Pep. < 20.0 pg/mL (0-125)
[2024-04-23 19:31] LABS: Troponin I < 0.01 ng/ml (0.00-0.034)
== END 2024-04-23 18:48 | disposition home or self-care (01) ==
PROVIDERS: Physician Assistant; Emergency Provider Student in an Organized Health Care Education/Training Program; PCP Internal Medicine
DX: F41.1 Generalized anxiety disorder (principal); F90.9 Attention-deficit hyperactivity disorder, unspecified type; R00.2 Palpitations; R25.1 Tremor, unspecified; R42 Dizziness and giddiness; Z87.891 Personal history of nicotine dependence
CPT/HCPCS: 71046; 80053; 83735; 83880; 84484; 85025; 85378; 85610; 86803; 87389; 87522; 93005; 99284

== ENCOUNTER 2024-10-22 14:55 | Outpatient (CLI) | payer MEDICAID, SELFPAY ==
--- OUTSIDE RECORDS SUMMARY | 2024-09-04 11:30 | XMS_ITS | Encounter Summary ---
[facility] Organization [facility] Address [address] [place] [address] Care Team Providers Care Carton Filler Name Role Phone Angel Edwadrs MD Primary Care Provider Reason for Visit * Reason Comments ADHD Encounter Details Date Type Department Care Team (Late st Contact Info) Description 09/04/2024 11:30 AM EDT Office Visit [facility] [address] [place] [address] Angel Edwards MD [address] [place] [address] Therapeutic drug monitoring (Primary Dx); Anxiety and depression; Attention deficit disorder (ADD) without hyperactivity; Adjustment insomnia; Allergic rhinitis due to other allergic trigger, unspecified seasonality; Reactive depression; Obesity (BMI 30-39.9) Social History Tobacco Use Types Packs/Day Years Used Date Smoking Tobacco: Every Day Cigarettes 0.3 3 Started: 023 Electronic Cigarette Passive Smoke Exposure: Past Smokeless Tobacco: Never Comments:Used to smoke cigar ettes for around 15 years Alcohol Use Standard Drinks/Week Comments Not Currently 0 (1 standard drink = 0.6 oz pur e alcohol) rare PHQ-2 Answer Date Recorded Retired PHQ-9: Brief Depression Severity Measure Score 12 08/04/2022 Abuse Screen Answer Date Recorded Feels Unsafe at Home or Work/School no 05/08/2024 Feels Threatened by Someone no 04/26 Does Anyone Try to Keep You From Having Contact with Others or Doing Things Outside Your Home? no 05/08/2024 Physical Signs of Abuse Present no 05/08/2024 PHQ-2 Answer Date Recorded Patient Health Questionnaire-2 Score 0 04/04/2024 Comments No Sex and Gender Information Value Date Recorded Sex Assigned at Not on file Legal Sex Female 12:22 PM EDT Gender Identity Not on file Sexual Orientation Not on file documented as of this encounter Last Filed Vital Signs Vital Sign Reading Time Taken Comments Blood Pressure 122/78 09/04/2024 11:13 AM EDT Pulse 80 09/04/2024 11:13 AM EDT Temperature - - Respiratory Rate - - Oxygen Saturation 97% 09/04/2024 11:13 AM EDT Inhaled Oxygen Concentration - - Weight 94.3 kg (208 lb) 09/04/2024 11:13 AM EDT Height 162.6 cm (5' 4.02 ) 09/04/2024 11:13 AM E DT Body Mass Index 35.69 09/04/2024 11:13 AM EDT documented in this encounter Progress Notes * Angel Edwards MD - 09/04/2024 11:30 AM EDT Answers submitted by the patient for this visit: Problem not listed (Submitted on 09/02/2024) Chief Complaint: Other medical problem Reason for appointment: Refills 3 month checkup fatigue: Yes headaches: Yes Madison Acevedo Jerson 1980 [id number] Patient Care Team: Angel Edwards MD as PCP - General (Internal Medicine) Es Jha MD as Consulting Physician (Orthopedic Surgery) Tolu Torres MD as Consulting Physician (Dermatology) Eduin Bee MD as Patient Financial Rep (Obstetrics and Gynecology) Alex West MD as Consulting Physician (Orthopedic Surgery) Daniel Perez MD as Consulting Physician (Cardiology) Raisa Wills APRN as Nurse Practitioner (Cardiology) Madison Arthur is a 43 y.o. female here today for follow up. This patient is accompanied by their self who contributes to the history of their care. Chief Complaint: Chief Complaint Patient presents with ADHD History of Present Illness: I have reviewed and/or updated the patient's past medical, past surgical, family, social history, problem list and allergies as appropriate. Madison is here to follow-up on attention deficit and anxiety and depression. She continues on Pristiq 100 mg daily Lamictal 25 mg daily and Adderall 20 mg tablet as needed. Her basal ADD medication is Vyvanse 50 mg daily. She denies any side effects with these medications. No palpitations or drymouth. She would like to discuss potential GLP agents for weight loss. She has never tried these. She has tried portion control and exercise. No family history of MEM/medullary thyroid cancer and shehas no history of pancreatitis. She has cold tolerance change in her skin or nails. Additionally has been taking trazodone for sleep. This helps however when she takes her Zyrtec with this she is hypersomnolent throughout the day. She was started on occasional chest pain. She is having extensive workup seeing cardiology as well as GI. She is on Protonix, off Norvasc. It is suspected is either a esophageal spasm or hiatal hernia. Symptoms lasted only about 5 minutes. Less frequent. Review of Systems Constitutional: Positive for fatigue and unexpected weight gain. Negative for unexpected weight loss. Respiratory: Negative for shortness of breath. Cardiovascular: Positive for chest pain. Endocrine: Negative for cold intolerance, heat intolerance, polydipsia and polyuria. Musculoskeletal: Negative. Psychiatric/Behavioral: Positive for decreased concentration and sleep disturbance. Vitals: 09/04/24 1113 BP: 122/78 Pulse: 80 SpO2: 97% Weight: 94.3 kg (208 lb) Height: 162.6 cm (64.02 ) Body mass index is 35.69 kg/m??. Physical Exam Vitals reviewed. Constitutional: Appearance: She is well-developed. HENT: Head: Normocephalic and atraumatic. Eyes: General: Right eye: No discharge. Left eye: No discharge. Conjunctiva/sclera: Conjunctivae normal. Cardiovascular: Rate and Rhythm: Normal rate and regular rhythm. Pulmonary: Effort: Pulmonary effort is normal. Breath sounds: Normal breath sounds. Chest: Chest wall: No tenderness. Abdominal: General: Bowel sounds are normal. Palpations: Abdomen is soft. Genitourinary: Comments: No CVA tendernesss Skin: General: Skin is warm and dry. Neurological: Mental Status: She is alert and oriented to person, place, and time. Procedures Results Review: I reviewed the patient's new clinical results. Reviewed cardiology notes his GI notes and EGD. Assessment/Plan: Problem List Items Addressed This Visit Reactive depression Relevant Medications desvenlafaxine (Pristiq) 100 MG 24 hr tablet lisdexamfetamine (Vyvanse) 50 MG capsule amphetamine-dextroamphetamine (ADDERALL) 20 MG tablet traZODone (DESYREL) 100 MG tablet Tirzepatide-Weight Management (Zepbound) 2.5 MG/0.5ML solution Anxiety and depression Relevant Medications desvenlafaxine (Pristiq) 100 MG 24 hr tablet lamoTRIgine (LaMICtal) 100 MG tablet lisdexamfetamine (Vyvanse) 50 MG capsule amphetamine-dextroamphetamine (ADDERALL) 20 MG tablet traZODone (DESYREL) 100 MG tablet Tirzepatide-Weight Management (Zepbound) 2.5 MG/0.5ML solution Attention deficit disorder (ADD) without hyperactivity Relevant Medications desvenlafaxine (Pristiq) 100 MG 24 hr tablet lisdexamfetamine (Vyvanse) 50 MG capsule amphetamine-dextroamphetamine (ADDERALL) 20 MG tablet traZODone (DESYREL) 100 MG tablet Tirzepatide-Weight Management (Zepbound) 2.5 MG/0.5ML solution Obesity (BMI 30-39.9) Relevant Medications Tirzepatide-Weight Management (Zepbound) 2.5 MG/0.5ML solution Other Visit Diagnoses Therapeutic drug monitoring - Primary Relevant Orders Compliance Drug Analysis, Ur - Urine, Clean Catch Adjustment insomnia Relevant Medications traZODone (DESYREL) 100 MG tablet Allergic rhinitis due to other allergic trigger, unspecified seasonality Relevant Medications fexofenadine (Chloe Allergy) 180 MG tablet Plan of care reviewed with patient at the conclusion of today's visit. Education was provided regarding diagnosis and management. Patient verbalizes understanding of and agreement with management plan. Return in about 3 months (around 12/05/2024) for add. Angel Edwards MD Please note than portions of this note were completed wth a Voice Recognition Program Answers submitted by the patient for this visit: Problem not listed (Submitted on 09/02/2024) Chief Complaint: Other medical problem Reason for appointment: Refills 3 month checkup headaches: Yes documented in this encounter Plan of Treatment Upcoming Encounters Date Type Department Care Team (Late st Contact Info) Description 11/03/2024 3:00 PM EDT Office Visit [facility] [address] [facility] [address] [place] [id number] Lynnette Cipriano Karon, INSURANCE ADMINISTRATOR [address] [place] [address] 12/05/2024 2:00 PM EDT Office Visit [facility] [address] [place] [phone] Angel Edwards MD [address] [place] [address] Pending Results Name Type Priority Associated Diagnoses Date /Time Compliance Drug Analysis, Ur - Urine, Clean Catch Lab Routine Therapeutic drug monitoring 09/04/2024 11:27 AM EDT Scheduled Orders Name Type Priority Associated Diagnoses Orde r Schedule Compliance Drug Analysis, Ur - Urine, Clean Catch Lab Routine Therapeutic drug monitoring Expected: 09/04/2024 (Approximate), Expires: 09/04/2025 documented as of this encounter Visit Diagnoses Diagnosis Therapeutic drug monitoring- Primary Encounter for therapeutic drug monitoring Anxiety and depression Attention deficit disorder (ADD) without hyperactivity Adjustment insomnia Insomnia, unspecified Allergic rhinitis due to other allergic trigger, unspecified seasonality Reactive depression Obesity (BMI 30-39.9) documented in this encounter Care Teams Carton Filler Relationship Specialty Start Date End Date Angel Edwards MD [address] [place] [address] PCP - General Internal Medicine 08/28/19 documented as of this encounter
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
--- OUTSIDE RECORDS SUMMARY | 2024-10-07 09:20 | XMS_ITS | Encounter Summary ---
[facility] [address] [id number] Care Team Providers Care Targeting Acquisition Officer Name Role Phone Angel Edwards MD Primary Care Provider [phone] Reason for Referral * Diagnostic Imaging (Routine) - Closed Specialty Diagnoses / Procedures Referred By Contac t Referred To Contact Radiology Diagnoses Mass of upper inner quadrant of right breast Breast pain, right Procedures Mammo Diagnostic Digital Tomosynthesis Bilateral With CAD Jaylen Michaels PA-C [address] [place] [address] Phone: tel: fax: [address] [address] Phone: tel: Referral ID Status Reason Start Date Expiration Date Visits Re quested Visits Authorized [id number] Closed 09/23/2024 12/23/2025 1 1 Reason for Visit * Diagnostic Imaging (Routine) - Closed Specialty Diagnoses / Procedures Referred By Contac t Referred To Contact Radiology Diagnoses Mass of upper inner quadrant of right breast Breast pain, right Procedures Mammo Diagnostic Digital Tomosynthesis Bilateral With CAD Jaylen Michaels PA-C [address] [place] [address] Phone: tel: fax: [facility] [address] [place] [phone] Phone: tel: Referral ID Status Reason Start Date Expiration Date Visits Re quested Visits Authorized [id number] Closed 09/23/2024 12/23/2025 1 1 Encounter Details Date Type Department Care Team (Latest Contact Info) Description 10/07/2024 9:20 AM EDT - 10/07/2024 11:59 PM EDT Hospital Encounter [facility] MAMMOGRAPHY [place] [address] [place] [address] Mass of upper inner quadrant of right breast; Breast pain, right Discharge Disposition: Home or Self Care Social History Tobacco Use Types Packs/Day Years [...] on file documented as of this encounter Medications at Time of Discharge amphetamine-dextro amphetamine (ADDERALL) 20 MG tabletIndications: Attention deficit disorder (ADD) without hyperactivity TAKE 1 TABLET BY MOUTH EVERY AFTERNOON 90 tablet 09/04/2024 desvenlafaxine (Pristiq) 100 MG 24 hr tabletIndications: Anxiety and depression Take 1 tablet by mouth Daily. 90 tablet 2 09/04/2024 fexofenadine (Chloe Allergy) 180 MG tabletIndications: Allergic rhinitis due to other allergic trigger, unspecified seasonality Take 1 tablet by mouth Daily. 90 tablet 2 09/04/2024 lamoTRIgine (LaMICtal) 100 MG tabletIndications: Anxiety and depression Take 1 tablet by mouth Daily. For 7 days. Increase by 1 tab every 7 days until target dose of 100 mg 90 tablet 3 09/04/2024 lisdexamfetamine (Vyvanse) 50 MG capsuleIndications :Attention deficit disorder (ADD) without hyperactivity Take 1 capsule by mouth Every Morning 90 capsule 09/04/2024 nitroglycerin (NITROSTAT) 0.3 MG SL tabletIndications: Chest pain at rest Place 1 tablet under the tongue Every 5 (Five) Minutes As Needed for Chest Pain. Take no more than 3 doses in 15 minutes. 100 tablet 12 04/04/2024 pantoprazole (PROTONIX) 40 MG EC tablet Take 1 tablet by mouth Daily. 90 tablet 3 03/08/2024 Tirzepatide-Weight Management (Zepbound) 2.5 MG/0.5ML solutionIndication s:Obesity (BMI 30-39.9) Inject 0.5 mL under the skin into the appropriate area as directed 1 (One) Time Per Week. 3 mL 2 09/04/2024 traZODone (DESYREL) 100 MG tabletIndications: Adjustment insomnia Take 1 tablet by mouth Every Night. 90 tablet 2 09/04/2024 documented as of this encounter Plan of Treatment Upcoming Encounters Date Type Department Care Team (Late st Contact Info) Description 11/03/2024 3:00 PM EDT Office Visit [facility] [address] [place] [address] Cipriano Church, [employer] SUPERVISOR [address] [place] [address] 12/05/2024 2:00 PM EDT Office Visit [facility] [address] [place] [address] Angel Edwards MD [address] [place] [address] documented as of this encounter Procedures Procedure Name Priority Date/Time Associated Diagnosis Comments MAMMO DIAGNOSTIC DIGITAL TOMOSYNTHESIS BILATERAL W CAD Routine 10/07/2024 11:17 AM EDT Mass of upper inner quadrant of right breast Breast pain, right documented in this encounter Results * Mammo Diagnostic Digital [...] distortion, or other secondary signs of malignancy. us Jaylen Michaels PA-C IMG MAMMOGRAPHY ORDERABLES Fin al Result documented in this encounter Visit Diagnoses Diagnosis Mass of upper inner quadrant of right breast Breast pain, right documented in this encounter Care Teams Targeting Acquisition Officer Relationship Specialty Start Date End Date Angel Edwards MD [address] [place] [address] PCP - General Internal Medicine 08/28/19 documented as of this encounter
--- OUTSIDE RECORDS SUMMARY | 2024-10-07 11:19 | XMS_ITS | Encounter Summary ---
[facility] [address] [place] [id number] Care Team Providers Care Forensic Toxicologist Name Role Phone Angel Edwards MD Primary Care Provider [phone] Reason for Referral * Diagnostic Imaging (Routine) - Closed Specialty Diagnoses / Procedures Referred By Contac t Referred To Contact Radiology Diagnoses Mass of upper inner quadrant of right breast Breast pain, right Procedures US Breast Right Limited Jaylen Michaels PA-C [address] [place] [address] Phone: tel: fax: [address] [phone] Phone: tel: Referral ID Status Reason Start Date Expiration Date Visits Re quested Visits Authorized [id number] Closed 10/07/2024 01/06/2026 1 1 Reason for Visit * Diagnostic Imaging (Routine) - Closed Specialty Diagnoses / Procedures Referred By Contac t Referred To Contact Radiology Diagnoses Mass of upper inner quadrant of right breast Breast pain, right Procedures US Breast Right Limited [place] [address] Phone: tel: fax: [facility] [address] [place] [phone] Phone: tel: Referral ID Status Reason Start Date Expiration Date Visits Re quested Visits Authorized [id number] Closed 10/07/2024 01/06/2026 1 1 Encounter Details Date Type Department Care Team (Latest Contact Info) Description 10/07/2024 11:19 AM EDT - 10/07/2024 11:59 PM EDT Hospital Encounter [facility] ULTRASOUND [place] [address] [place] [address] Mass of upper inner quadrant [...] 3:00 PM EDT Office Visit [facility] [address] [place] [id number] Cipriano Church, CONSULTING SALES MANAGER [address] [place] [address] 12/05/2024 2:00 PM EDT Office Visit [facility] [address] [place] [address] Angel Edwards MD [address] [place] [address] documented as of this encounter Procedures Procedure Name Priority Date/Time Associated Diagnosis Comments US BREAST RIGHT LIMITED Routine 10/07/2024 11:44 AM EDT Mass of upper inner quadrant of right breast Breast pain, right documented in this encounter Results * US Breast Right Limited (10/07/2024 11:44 AM EDT) Anatomical Region Laterality Modality Breast Right Ultrasound 10/07/2024 11:0 9 AM EDT Impressions 10/07/2024 [...] or other secondary signs of malignancy. us Esmer Dahl MD IMG US ORDERABLES Final Result documented in this encounter Visit Diagnoses Diagnosis Mass of upper inner quadrant of right breast Breast pain, right documented in this encounter Care Teams Forensic Toxicologist Relationship Specialty Start Date End Date Angel Edwards MD [address] [place] [address] PCP - General Internal Medicine 08/28/19 documented as of this encounter
--- NOTE | 2024-10-22 14:58 | XR_ITS ---
FINAL REPORT CLINICAL HISTORY: L thumb/wrist pain FINDINGS: AP, oblique, and lateral views of the left hand were obtained. There is no prior exam for comparison. There is no acute fracture of the left hand. The joint spaces are preserved. The soft tissues are normal. IMPRESSION: No acute osseous abnormality of the left hand. Reviewed, Interpreted and Dictated by Mariel Nielsen MD Transcribed by Patrica Harley Authenticated and [facility]
--- NOTE | 2024-10-22 14:58 | XR_ITS ---
FINAL REPORT CLINICAL HISTORY: L thumb/wrist pain FINDINGS: AP, oblique, and lateral views of the left wrist were obtained. There is no prior exam for comparison. There is no acute fracture or dislocation. The joint spaces are preserved. The soft tissues are normal. IMPRESSION: No acute osseous abnormality of the left wrist. Reviewed, Interpreted and Dictated by Mariel Nielsen MD Transcribed by Patrica Harley Authenticated and [facility]
--- OUTSIDE RECORDS SUMMARY | 2024-10-22 14:59 | XMS_ITS | Clinical Summary ---
Author Organization [facility] Address [address] [place] [address] Care Team Providers Care Associate Professor Of Counseling Name Role Phone Angel Edwards MD Primary Care Provider [phone] Allergies Active Allergy Reactions Criticality Noted Date Comments Loratadine Other (See Comments) Medium 08/14/2016 MIGRAINE Ketorolac Nausea Only Medium 09/14/2018 abd.pain Latex Rash Low 08/14/2016 Sulfa Antibiotics Hives 05/16/2021 Ketorolac Tromethamine Nausea Only Medium 09/14/2018 abd.pain Tramadol Rash Low 08/14/2016 Acetaminophen-Codeine GI Intolerance 08/30/2020 Medications * This document contains information received from the source organization and may not represent a complete record from that organization. pantoprazole (PROTONIX) 40 MG EC tablet Take 1 tablet by mouth Daily. 90 tablet 3 4 Active nitroglycerin (NITROSTAT) 0.3 MG SL tabletIndications :Chest pain at rest Place 1 tablet under the tongue Every 5 (Five) Minutes As Needed for Chest Pain. Take no more than 3 doses in 15 minutes. 100 tablet 12 5 Active desvenlafaxine (Pristiq) 100 MG 24 hr tabletIndications :Anxiety and depression Take 1 tablet by mouth Daily. 90 tablet 2 5 Active lamoTRIgine (LaMICtal) 100 MG tabletIndications :Anxiety and depression Take 1 tablet by mouth Daily. For 7 days. Increase by 1 tab every 7 days until target dose of 100 mg 90 tablet 3 5 Active lisdexamfetamine (Vyvanse) 50 MG capsuleIndication s:Attention deficit disorder (ADD) without hyperactivity Take 1 capsule by mouth Every Morning 90 capsule 5 Active amphetamine-dextr oamphetamine (ADDERALL) 20 MG tabletIndications :Attention deficit disorder (ADD) without hyperactivity TAKE 1 TABLET BY MOUTH EVERY AFTERNOON 90 tablet 5 Active traZODone (DESYREL) 100 MG tabletIndications :Adjustment insomnia Take 1 tablet by mouth Every Night. 90 tablet 2 5 Active fexofenadine (Chloe Allergy) 180 MG tabletIndications :Allergic rhinitis due to other allergic trigger, unspecified seasonality Take 1 tablet by mouth Daily. 90 tablet 2 5 Active Tirzepatide-Weigh t Management (Zepbound) 2.5 MG/0.5ML solutionIndicatio ns:Obesity (BMI 30-39.9) Inject 0.5 mL under the skin into the appropriate area as directed 1 (One) Time Per Week. 3 mL 2 5 Active Active Problems Problem Noted Date Diagnosed Date Chest pain at rest 04/04/2024 Obesity (BMI 30-39.9) 04/25/2023 Assessment & Plan (04/25/2023 1:15 PM EST): Patient's (Body mass index is 35.89 kg/m .) indicates that they are obese (BMI >30) with health conditions that include none . Weight is unchanged. BMI is above average; BMI management plan is completed. We discussed low calorie, low carb based diet program, portion control, increasing exercise, joining a fitness center or start home based exercise program, and pharmacologic options including semaglutide . Recommend nutritional counseling and Mediterranean diet. Per CDC 150 min aerobic physical activity weekly Attention deficit disorder (ADD) without hyperac tivity 08/04/2022 Elevated lipase 03/03/2022 Tinea pedis of both feet 03/03/2022 Assessment & Plan (03/03/2022 1:52 PM EST): Wash feet twice a day ensure drying. She has failed Tinactin. We will try Lamisil 250 daily x2 weeks with 1 refill. If no improvement dermatology Nausea and vomiting 03/03/2022 Assessment & Plan (03/03/2022 1:54 PM EST): Review of her hospitalization, her CT of her pancreas was entirely unremarkable. She had evidence of enteritis. I suspect the elevated lipase nausea and vomiting was secondary to enteritis possible food poisoning. She may have mesenteric adenitis given adenopathy that was noted. Regardless she is improved. If symptoms return, I would recommend GI evaluation. In summary I do not think this was acute pancreatitis Acute pancreatitis 02/24/2022 HTN (hypertension) 02/24/2022 Abdominal pain 02/24/2022 Right foot pain 08/10/2021 Acute non-recurrent frontal sinusitis 08/10/2021 Localized edema 08/10/2021 Post tonsillectomy secondary hemorrhage 08/10/19 21 Numbness and tingling of right arm 05/06/2020 Assessment & Plan (06/21/2020 4:54 PM EDT): Concern over possible brachial plexus issue, compressive neuropathy. Need some direction with the EMG/NCV. Further referrals anticipated either with physical therapy neurology or neurosurgery depending the results. Assessment & Plan (05/07/2020 10:16 AM EST): Dif dx cervical myelopathy/radiculopathy, carpal tunnel syndrome or brachial plexopathy. Referral with NS. May need EMG/advanced imaging. X-ray PT ordered Vertigo 05/06/2020 Assessment & Plan (05/07/2020 10:18 AM EST): Continue meclizine. We have placed her on Zyrtec-D as well as Flonase. If symptoms worsen she is to return to clinic. Sounds like BPPV or labyrinthitis. Start physical therapy and/or imaging if symptoms improve Morbid (severe) obesity due to excess calories 0 05/06/2020 Assessment & Plan (05/07/2020 10:17 AM EST): Patient has been staffed with bariatric surgery. She will report any monthly for weight check. Recommend she continue Gym membership/aerobic physical activity is 45 to 60 minutes/day 5 days/week. Recommend trialing calorie food intake. Avoid concentrated sweets especially from fructose corn syrup containing material Reactive depression 08/28/2019 Assessment & Plan (06/21/2020 4:56 PM EDT): Patient's depression is recurrent and is moderate without psychosis. Their depression is currently active and the condition is worsening. This will be reassessed at the next regular appointment. F/U as described:patient referred to Mental Health Specialist. Addition of placed her on Wellbutrin XL and 50 mg daily titrating after 7 days up to 300 mg. Of asked her to call the office and/or stop her Wellbutrin if her obsessive thoughts worsen while on Wellbutrin. Assessment & Plan (08/28/2019 2:43 PM EDT): Psychological condition is worsening. Medication changes per orders. Psychological condition will be reassessed in 4 weeks. Chronic hepatitis C 08/28/2019 Assessment & Plan (08/28/2019 2:43 PM EDT): Phenotype genotype unknown. She is interested in treatment. Will defer this to Dr. Emery's at the time of consultation. Morbid obesity with BMI of 40.0-44.9, adult 06/2019 Assessment & Plan (08/28/2019 2:45 PM EDT): Obesity is worsening. Discussed the patient's BMI. The BMI is above average; BMI management plan is completed. General weight loss/lifestyle modification strategies discussed (elicit support from others; identify saboteurs; non-food rewards, etc). I have referred recommended health management resources (HMR) to her. GERD (gastroesophageal reflux disease) Overview (04/14/2020): on Protonix Fatigue Dyspepsia Dyspnea on exertion Former smoker Anxiety and depression Assessment & Plan (08/30/2020 3:05 PM EDT): Patient's depression is recurrent and is mild without psychosis. Their depression is currently in partial remission and the condition is improving with treatment. This will be reassessed at the next regular appointment. F/U as described:patient will continue current medication therapy. Sleep apnea Assessment & Plan (06/21/2020 4:55 PM EDT): She has massive tonsils as well as morbidly obese. She would benefit from weight loss. Diet and exercise. I referred her to ear nose and throat as she is adamant of having her tonsils take. I do think she would benefit from a sleep study and is referred her for evaluation. History of drug use Overview (04/14/2020): heroin addict, clean x 2017 Nephrolithiasis Encounters Date Type Department Care Team Description 10/22/2024 Telephone [facility] [address] [place] [address] Angel Edwards MD XRAY ORDER REQUEST 10/07/2024 11:19 AM EDT - 10/07/2024 11:59 PM EDT Hospital Encounter [facility] [place] [address] [address] Mass of upper inner quadrant of right breast; Breast pain, right Discharge Disposition: Home or Self Care 10/07/2024 9:20 AM EDT - 10/07/2024 11:59 PM EDT Hospital Encounter [facility]MO[facility]APHY [place] [address] [address] Mass of upper inner quadrant of right breast; Breast pain, right Discharge Disposition: Home or Self Care 10/07/2024 Travel 09/23/2024 3:30 PM EDT Office Visit [facility] [address] [place] [phone] Jaylen Michaels PA-C Mass of upper inner quadrant of right breast (Primary Dx); Breast pain, right 09/23/2024 Travel 09/04/2024 11:30 AM EDT Office Visit [facility] [place] [address] Angel Edwards MD Therapeutic drug monitoring (Primary Dx); Anxiety and depression; Attention deficit disorder (ADD) without hyperactivity; Adjustment insomnia; Allergic rhinitis due to other allergic trigger, unspecified seasonality; Reactive depression; Obesity (BMI 30-39.9) 09/04/2024 Travel 08/29/2024 Telephone [facility] [address] [address] Angel Edwards MD NEW PATIENT from Last 3 Months Immunizations Immunization Administration Dates Next Due COVID-19 (MODERNA) 1st,2nd,3 rd Dose Monovalent 07/07/2020,06/09/2020 Flu Vaccine Quad PF >36MO 03/29/2020 Fluzone (or Fluarix & Flulav al for VFC) >6mos 03/21/2023,03/03/2022,03/29/2020 Hepatitis A 03/02/2021 Influenza, Unspecified 03/29/2020,12/27/2016 Td (TDVAX) 06/04/1997 Family History Medical History Relation Name Comments Breast cancer Maternal Aunt Heart disease Maternal Grandfather Tolu Hypertension Maternal Grandfather Tolu Stroke Maternal Grandfather Tolu Cancer Maternal Uncle 1 [place] Colon lung Cancer Maternal Uncle 2 Chloe Prostate Malig Hyperthermia Paternal Aunt 1 Cancer Paternal Aunt 2 [place] Lung brain Cancer Paternal Grandmother Cannie Lung br ain Heart disease Paternal Grandmother Cannie Colon cancer Neg Hx Endometrial cancer Neg Hx Ovarian cancer Neg Hx Uterine cancer Neg Hx Relation Name Status Comments Brother Alive Father Alive Maternal Aunt Maternal Grandfather Tolu Heart a ttack Maternal Uncle 1 [place] Alive Maternal Uncle 2 Chloe Alive Mother Alive Paternal Aunt 1 Paternal Aunt 2 [place] Alive Paternal Grandfather auto ac cident Paternal Grandmother Iván Social History Tobacco Use Types Packs/Day Years [...] on file Sexual Orientation Not on file Last Filed Vital Signs Vital Sign Reading Time Taken Comments Blood Pressure 118/78 09/23/2024 3:23 PM EDT Pulse 112 09/23/2024 3:23 PM EDT Temperature 37.2 C (98.9 F) 06/06/2024 3:50 PM EDT Respiratory Rate 18 07/14/2024 3:19 PM EDT Oxygen Saturation 98% 09/23/2024 3:23 PM EDT Inhaled Oxygen Concentration - - Weight 91.2 kg (201 lb) 09/23/2024 3:23 PM EDT Height 162.6 cm (5' 4.02 ) 09/23/2024 3:23 PM ED T Body Mass Index 34.48 09/23/2024 3:23 PM EDT Plan of Treatment Upcoming Encounters Date Type Department Care Team (Late st Contact Info) Description 11/03/2024 3:00 PM EDT Office Visit [facility] [address] [facility] [address] [place] [address] Cipriano Church, RESEARCH PHYSICIST [address] [place] [address] 12/05/2024 2:00 PM EDT Office Visit [facility] [address] [place] [address] Angel Edwards MD [address] [place] [address] Health Maintenance Due Date Last Done Comments Hepatitis B (1 of 3 - 19+ 3-dose series) 2001 Pneumococcal Vaccine 0-49 (1 of 2 - PCV) 2001 TDAP/TD VACCINES (2 - Tdap) 06/05/2007 06/04/1997 ANNUAL PHYSICAL 08/14/2016 Annual Gynecologic Pelvic and Breast Exam 09/05/2020 09/05/2019 INFLUENZA VACCINE 12/24/2024 03/21/2023, , 03/29/2020, Additional history exists COVID-19 Vaccine ( season) 2025 07/07/2020, 06/09/2020 Postponed from 11/25/2023 (Patient Refused) MAMMOGRAM 10/07/2026 10/07/2024, 09/24, 09/29/2019, Additional history exists HEPATITIS C SCREENING Completed 10/02/2019 , 10/02/2019, 10/02/2019, Additional history exists Procedures Procedure Name Priority Date/Time Associated Diagnosis Comments US BREAST RIGHT LIMITED Routine 10/07/2024 11:44 AM EDT Mass of upper inner quadrant of right breast Breast pain, right MAMMO DIAGNOSTIC DIGITAL TOMOSYNTHESIS BILATERAL W CAD Routine 10/07/2024 11:17 AM EDT Mass of upper inner quadrant of right breast Breast pain, right AMBRY GENETIC ASSESSMENT Routine 10/07/2024 10:45 AM EDT COMPLIANCE DRUG ANALYSIS, UR Routine 09/04/2024 12:00 AM EDT HEPATITIS C RNA, QUANTITATIVE, PCR (GRAPH) Routine 10/02/2019 4:47 PM EDT Chronic hepatitis C without hepatic coma from Last 3 Months or Most Recently Relevant to Health Maintenance Results * US Breast Right Limited (10/07/2024 [...] Dahl MD IMG US ORDERABLES Final Result * Mammo Diagnostic Digital Tomosynthesis Bilateral With [...] PA-C IMG MAMMOGRAPHY ORDERABLES Fin al Result * ICONIC GENETIC RISK ASSESSMENT QUESTIONNAIRE - , (10/07/2024 10:45 AM EDT) Sylviaoscarjaun 4.8 ICONIC GENETICS NCCN NCCN not met [employer] Comment:High Risk Cancer Ris k Assessment 10/07/2024 10:4 5 AM EDT us Jaylen Michaels PA-C GENETIC TESTING Final Result BELLE VELEZ
[address] [id number], * Compliance Drug Analysis, Ur - (09/04/2024 12:00 AM EDT) Report Summary FINAL [facility] Comment: TOXASSURE COMP DRUG ANALYSIS,UR Test Result Flag Units Drug Present and Declared for Prescription Verification Amphetamine 5390 EXPECTED ng/mg creat Amphetamine is available as a schedule II prescription drug. Lamotrigine PRESENT EXPECTED Trazodone PRESENT EXPECTED 1,3 chlorophenyl piperazine PRESENT EXPECTED 1,3-chlorophenyl piperazine is an expected metabolite of trazodone. Desmethylvenlafaxine PRESENT EXPECTED Desmethylvenlafaxine may be present due to administration of desvenlafaxine; it is also an expected metabolite of venlafaxine. Drug Present not Declared for Prescription Verification Carboxy-THC >704 UNEXPECTED ng/mg creat Carboxy-THC is a metabolite of tetrahydrocannabinol (THC). Source of THC is most commonly herbal marijuana or marijuana-based products, but THC is also present in a scheduled prescription medication. Trace amounts of THC can be present in hemp and cannabidiol (CBD) products. This test is not intended to distinguish between vbcgc-7-sjcddxhwsblwedldsuad, the predominant form of THC in most herbal or marijuana-based products, and zyciw-0-hweuztrmbqrjjavolwjz. Ibuprofen PRESENT UNEXPECTED Test Result Flag Units Ref Range Creatinine 142 mg/dL >=20 Declared Medications: The flagging and interpretation on this report are based on the following declared medications. Unexpected results may arise from inaccuracies in the declared medications. Note: The testing scope of this panel includes these medications: Amphetamine (Adderall) Amphetamine (Vyvanse) Desvenlafaxine Lamotrigine Trazodone Note: The testing scope of this panel does not include following reported medications: Amlodipine Nitroglycerin Pantoprazole For clinical consultation, please call . 09/04/2024 09/04/2024 Narrative [facility] ([facility]) - 09/10/2024 1:10 PM EDT Performed at: 01 - [employer] [employer] [address] [place] [id number] Auto Electrician: Tasia Nguyen [facility], Phone: [phone] Specimen Comment: ToxAssure, [employer] FLEX or MAT drug testing: Specimen Comment: -Technical component - Data analysis performed at Specimen Comment: [facility], [address] [address], [place], [place] Specimen Comment: [id number]. [phone]. Auto Electrician Paco Simpson MD. Angel Edwards MD URINE ORDERABLES Final Result Performing Organization Address City/[facility]/ZIP Co de Phone Number [facility] [address] [place] [address], [facility] [address] [place] [address], * Hepatitis C RNA, Quantitative, PCR (graph) (10/02/2019 4:47 PM EDT) Pathologist [facility] Hepatitis C Quantitation HCV Not Detected IU/mL 10/08/2019 1:06 AM EDT [facility] Test Information Comment 10/08/19 1:06 AM EDT [facility] Comment:The quantitative ran ge of this assay is 15 IU/mL to 100 million IU/mL. Blood Venipuncture / Unknown 10/02/2019 4:47 PM EDT 10/02/2019 4:47 PM EDT Narrative [facility] - 10/08/2019 1:06 AM EDT Performed at: [address] [place] [id number] Auto Electrician: Lexy Barlow MD, Phone: [phone] Denis Deluca MD LAB BLOOD ORDERABLES Final Result Performing Organization Address City/[facility]/ZIP Co de Phone Number [facility] [address] [place] [address], from Last 3 Months or Most Recently Relevant to Health Maintenance Insurance [facility] [place] [address] Advance Directives * CPR (Attempt to Resuscitate) (Latest Code Status on File) Date Activated Date Inactivated Comments 08/22/2019 3:37 PM 08/23/2019 5:48 PM Question Answer Comments Code Status (Patient has no pulse and is not breathing): CPR (Attempt to Resuscitate) Medical Interventions (Patie nt has pulse or is breathing): Full Level Of Support Discussed With: Patient Care Teams Associate Professor Of Counseling Relationship Specialty Start Date End Date Angel Edwards MD [address] [place] [address] PCP - General Internal Medicine 08/28/19
--- OUTSIDE RECORDS SUMMARY | 2024-10-22 14:59 | XMS_ITS | Clinical Summary ---
Author Organization Healthcare Address [address] [place] [address] Care Team Providers Care Campaign Management Specialist Name Role Phone Farhat Hargrove MD Primary Care Provider [phone] Immunizations Immunization Administration Dates Next Due Influenza, Unspecified 12/27/2016 Family History Medical History Relation Name Comments Colon cancer Maternal Grandmother Lung cancer Paternal Grandmother Relation Name Status Comments Maternal Grandmother Paternal Grandmother Social History Tobacco Use Types Packs/Day Years Used Date Smoking Tobacco: Former Alcohol Use Standard Drinks/Week Comments Yes 0 (1 standard drink = 0.6 oz pure alcohol) Alcoholic Drinks/day: Minimum alcohol consumption Comments Unknown Sex and Gender Information Value Date Recorded Sex Assigned at Not on file Legal Sex Female 8:40 PM EDT Gender Identity Not on file Sexual Orientation Not on file Last Filed Vital Signs Vital Sign Reading Time Taken Comments Blood Pressure - - Pulse - - Temperature - - Respiratory Rate - - Oxygen Saturation - - Inhaled Oxygen Concentration - - Weight 99.8 kg (220 lb) 11/25/2014 9:49 AM EDT Height 167.6 cm (5' 6 ) 09/28/2014 1:55 PM EDT Body Mass Index 35.51 09/28/2014 1:55 PM EDT Plan of Treatment Not on file Care Teams Campaign Management Specialist Relationship Specialty Start Date End Date Farhat Hargrove MD [address] [place] [address] PCP - General 08/06/20
--- OUTSIDE RECORDS SUMMARY | 2024-10-22 14:59 | XMS_ITS | Encounter Summary ---
Author Organization [facility] Address [address] [place] [address] Care Team Providers Care Forensics Team Director Name Role Phone Angel Beltrán MD Primary Care Provider [phone] Reason for Visit * Reason Onset Date Comments NEW PATIENT 08/29/2024 Encounter Details Date Type Department Care Team (Late st Contact Info) Description 08/29/2024 Telephone [facility] [address] [place] [address] Angel Beltrán MD [address] [place] [address] NEW PATIENT Social History Tobacco Use Types Packs/Day Years Used Date Smoking Tobacco: Every Day Electronic Cigarette Passive Smoke Exposure: Past Smokeless Tobacco: Never Comments:Used to smoke cigar ettes for around 15 years Alcohol Use Standard Drinks/Week Comments Yes 0 [...] on file documented as of this encounter Miscellaneous Notes * Telephone Encounter - Gary Limon RegSched Rep - 08/29/2024 2:10 PM EDT Caller: Madison Arthur Relationship to patient: Self Best call back number: [phone] Chief complaint: NEW PATIENT Type of visit: NEW PATIENT Requested date: SOON POSSIBLE Additional notes: PATIENT STATES SHE TALKED TO DR. BELTRÁN ABOUT GETTING HER MOTHER IN A NEW PATIENT. PLEASE VERIFY AND CALL PATIENT TO GATHER INFORMATION ON HER MOTHER documented in this encounter Plan of Treatment Upcoming Encounters Date Type Department Care Team (Late st Contact Info) Description 11/03/2024 3:00 PM EDT Office Visit [facility] [address] [place] [address] Cipriano Church, HANDICRAFTS TEACHER [address] [place] [address] 12/05/2024 2:00 PM EDT Office Visit [facility] [address] [place] [phone] Angel Beltrán MD [address] [place] [address] documented as of this encounter Visit Diagnoses Not on filedocumented in this encounter Care Teams Forensics Team Director Relationship Specialty Start Date End Date Angel Beltrán MD [address] [place] [address] PCP - General Internal Medicine 08/28/19 documented as of this encounter
--- OUTSIDE RECORDS SUMMARY | 2024-10-22 14:59 | XMS_ITS | Clinical Summary ---
Author Organization [facility] Address [address] [place] [address] Care Team Providers Care Director Translational Name Role Phone Pcp, No Primary Care Provider [phone] Source Comments This information has been disclosed to you from confidential records protectedfrom disclosure by state law. You shall make no further disclosure of thisinformation without the specific, written, and informed release of theindividual to whom it pertains, or as otherwise permitted by law. A generalauthorization for the release of medical or other information is not sufficientfor the purposes of therelease of HIV test results or diagnoses. [id number] Allergies Active Allergy Reactions Criticality Noted Date Comments Latex 01/06/2019 Ketorolac 01/06/2019 Tramadol 01/06/2019 Medications ondansetron (ZOFRAN ODT) 4 MG disintegrating tablet Take 1 tablet (4 mg total) by mouth every 8 hours as needed for Nausea. 20 tablet 9 Active Social History Tobacco Use Types Packs/Day Years Used Date Smoking Tobacco: Never Smokeless Tobacco: Never Alcohol Use Standard Drinks/Week Comments Never 0 (1 standard drink = 0.6 oz pur e alcohol) AUDIT-C Answer Date Recorded Frequency of Alcohol Consumption Never 01/06/2019 Average Number of Drinks Not on file 019 Frequency of Binge Drinking Not on file 12/24 Comments No Sex and Gender Information Value Date Recorded Sex Assigned at Not on file Legal Sex Female 2:54 PM EDT Gender Identity Not on file Sexual Orientation Not on file Last Filed Vital Signs Vital Sign Reading Time Taken Comments Blood Pressure 134/86 01/06/2019 4:12 PM EDT Pulse 98 01/06/2019 4:12 PM EDT Temperature 36.4 C (97.6 F) 01/06/2019 4:12 PM EDT Respiratory Rate 18 01/06/2019 4:12 PM EDT Oxygen Saturation 97% 01/06/2019 4:12 PM EDT Inhaled Oxygen Concentration 97% 01/06/2019 4 :12 PM EDT Weight - - Height - - Body Mass Index - - Plan of Treatment Not on file Insurance [employer] Care Teams Director Translational Relationship Specialty Start Date End Date Pcp, No No Address PCP - General Pediatrics 01/06/19
--- OUTSIDE RECORDS SUMMARY | 2024-10-22 14:59 | XMS_ITS | Encounter Summary ---
[facility] Address [address] [place] [address] Care Team Providers Care Can Crimper Name Role Phone Angel Edwards MD Primary Care Provider [phone] Encounter Details Date Type Department Care Team (Late st Contact Info) Description 06/23/2024 Results Follow-Up [facility] [address] [phone] Denis Deluca MD [address] [place] [address] Social History Tobacco Use Types Packs/Day Years [...] on file documented as of this encounter Plan of Treatment Upcoming Encounters Date Type Department Care Team (Late st Contact Info) Description 11/03/2024 3:00 PM EDT Office Visit [facility] [address] [place] [phone] Cipriano Church, SORT LINE WORKER [address] [place] [address] 12/05/2024 2:00 PM EDT Office Visit [facility] [address] [place] [phone] Angel Edwards MD [address] [place] [address] documented as of this encounter Visit Diagnoses Not on filedocumented in this encounter Care Teams Can Crimper Relationship Specialty Start Date End Date Angel Edwards MD [address] [place], [place] [id number] PCP - General Internal Medicine 08/28/19 documented as of this encounter
--- OUTSIDE RECORDS SUMMARY | 2024-10-22 14:59 | XMS_ITS | Encounter Summary ---
[facility] Address [address] [place] [address] Care Team Providers Care Microbiology Laboratory Manager Name Role Phone Angel Edwards MD Primary Care Provider [phone] Encounter Details Date Type Department Care Team (Latest Contact Info) Description 09/23/2024 Travel Social History Tobacco Use Types Packs/Day Years [...] Description 11/03/2024 3:00 PM EDT Office Visit [facility] [address] [facility] [address] [place] [address] Cipriano Church, PROVIDER CONTRACTING CONSULTANT [address] [place] [address] 12/05/2024 2:00 PM EDT Office Visit [facility] [address] [place] [phone] Angel Edwards MD [address] [place], [place] [id number] documented as of this encounter Visit Diagnoses Not on filedocumented in this encounter Care Teams Microbiology Laboratory Manager Relationship Specialty Start Date End Date Angel Edwards MD [address] [place], [place] [id number] PCP - General Internal Medicine 08/28/19 documented as of this encounter
--- OUTSIDE RECORDS SUMMARY | 2024-10-22 14:59 | XMS_ITS | Encounter Summary ---
[facility] Address [address] [place] [address] Care Team Providers Care Group Burner Machine Name Role Phone Angel Edwards MD Primary Care Provider [phone] Encounter Details Date Type Department Care Team (Latest Contact Info) Description 09/04/2024 Travel Social History Tobacco Use Types Packs/Day [...] Description 11/03/2024 3:00 PM EDT Office Visit [facility] [address] [facility] [address] [place] [address] Cipriano Church, CLOSED CIRCUIT SCREEN WATCHER [address] [place] [address] 12/05/2024 2:00 PM EDT Office Visit [facility] [address] [place] [phone] Angel Edwards MD [address] [place], [place] [id number] documented as of this encounter Visit Diagnoses Not on filedocumented in this encounter Care Teams Group Burner Machine Relationship Specialty Start Date End Date Angel Edwards MD [address] [place], [place] [id number] PCP - General Internal Medicine 08/28/19 documented as of this encounter
--- OUTSIDE RECORDS SUMMARY | 2024-10-22 14:59 | XMS_ITS | Encounter Summary ---
[facility] [address] [place] [address] Care Team Providers Care Manufacturing Engineer Assembly Name Role Phone Angel Edwards MD Primary Care Provider [phone] Encounter Details Date Type Department Care Team (Latest Contact Info) Description 10/07/2024 Travel Social History Tobacco Use Types Packs/Day [...] Description 11/03/2024 3:00 PM EDT Office Visit [facility] [address] [facility] [address] [place] [address] Cipriano Church, REGISTERED VETERINARY TECHNICIAN [address] [place] [address] 12/05/2024 2:00 PM EDT Office Visit [facility] [address] [place] [phone] Angel Edwards MD [address] [place], [place] [id number] documented as of this encounter Visit Diagnoses Not on filedocumented in this encounter Care Teams Manufacturing Engineer Assembly Relationship Specialty Start Date End Date Angel Edwards MD [address] [place], [place] [id number] PCP - General Internal Medicine 08/28/19 documented as of this encounter
--- OUTSIDE RECORDS SUMMARY | 2024-10-22 14:59 | XMS_ITS | Encounter Summary ---
[facility] [address] [place] [address] Care Team Providers Care Manager Transit Name Role Phone Angel Edwards MD Primary Care Provider [phone] Reason for Visit * Reason Onset Date Comments XRAY ORDER REQUEST 10/22/2024 Encounter Details Date Type Department Care Team (Late st Contact Info) Description 10/22/2024 Telephone [facility] [address] [place] [address] Angel Edwards MD [address] [place] [address] XRAY ORDER REQUEST Social History Tobacco Use Types Packs/Day Years [...] encounter Miscellaneous Notes * Telephone Encounter - Bassam Rey MA - 10/22/2024 1:37 PM EDT Patient informed she would need a visit before imaging orders can be placed. She was scheduled withDr Edwards tomorrow. * Telephone Encounter - Evita Mccollum MA - 10/22/2024 1:30 PM EDT Caller: Madison Arthur Relationship: Self Best call back number: [phone] What orders are you requesting (i.e. lab or imaging): LEFT THUMB XRAY In what timeframe would the patient need to come in: TODAY Where will you receive your lab/imaging services: [facility] Additional notes: PUTTING NEW GRILL TOGETHER, GRILL LID SLAMMED DOWN ON THUMB BRUISE AND HURTS. PLEASE CALL AND ADVISE documented in this encounter Plan of Treatment Upcoming Encounters Date Type Department Care Team (Late st Contact Info) Description 11/03/2024 3:00 PM EDT Office Visit [facility] [address] [facility] [address] [place] [phone] Cipriano Church, OFFICE MAIL CLERK [address] [place] [address] 12/05/2024 2:00 PM EDT Office Visit [facility] [address] [place] [address] Angel Edwards MD [address] [place] [address] documented as of this encounter Visit Diagnoses Not on filedocumented in this encounter Care Teams Manager Transit Relationship Specialty Start Date End Date Angel Edwards MD [address] [place] [address] PCP - General Internal Medicine 08/28/19 documented as of this encounter
== END 2024-10-22 23:59 | disposition home or self-care (01) ==
LOC: RAD 14:56
PROVIDERS: PCP Internal Medicine; Visit Provider Student in an Organized Health Care Education/Training Program
DX: M79.645 Pain in left finger(s) (principal); M25.532 Pain in left wrist
CPT/HCPCS: 73110; 73130